=== PATIENT | female | born 1960 | race Caucasian/White ===

== ENCOUNTER 2017-06-19 21:37 | Emergency (ER) | payer SELFPAY ==
[2017-06-19 22:28] LABS: #Eosinphils 0.2 thou/uL (0.0-0.7); #Lymphocytes 1.4 thou/uL (1.20-3.40); #Monocytes 0.6 thou/uL (0.11-0.59); #Neutrophils 7.9 thou/uL (1.40-6.50); %Basophils 0.5 % (0.0-1.0); %Eosinophils 1.7 % (0.0-10.0); %Monocytes 5.7 % (0.0-10.0); %Neutrophils 78.2 % (42.0-75.0); Hemoglobin 13.6 g/dL (12.0-16.0); Mean Corpuscular HGB CONC 34.1 g/dL (32.0-36.0); Mean Corpuscular Hemoglobin 31.7 pg (27.0-31.0); Mean Corpuscular Volume 93.2 fl (81.0-99.0); Mean Platelet Volume 7.5 fL (7.4-10.4); Platelet Count 193 thou/uL (130-400); RBC Distribution Width 11.9 % (11.5-14.5); White Blood Cell (WBC) Count 10.1 thou/uL (4.8-10.8)
[2017-06-19 22:50] LABS: ALT (SGPT) 55 U/L (8-55); AST (SGOT) 43 U/L (5-34); Albumin 3.9 g/dL (3.5-5.0); Alkaline Phosphatase 133 U/L (40-150); Anion Gap 12 mmol/L (10-20); BUN (Urea Nitrogen) 14 mg/dL (9.8-20.1); Bilirubin, Total 0.7 mg/dL (0.2-1.2); Calc. Creatinine Clearance 0 mL/min (70-130); Calcium 9.5 mg/dL (7.8-10.44); Carbon Dioxide 24 mmol/L (22-29); Chloride 106 mmol/L (98-107); Estimated GFR-MDRD 75; Globulin 3.4 g/dL (2.4-3.5); Glucose 182 mg/dL (70-105); Potassium 3.6 mmol/L (3.5-5.1); Protein, Total 7.3 g/dL (6.0-8.3); Sodium 138 mmol/L (136-145)
[2017-06-19] MEDS ORDERED: Diazepam 5 MG TAB ONE (23:01)
[2017-06-19] MEDS ORDERED: Ketorolac Tromethamine 30 MG/ML VIAL ONE (23:01)
--- NOTE | 2017-06-19 23:04 | RAD ---
RIGHT HIP TWO VIEWS: History: Right hip pain. FINDINGS: There are arthritic changes of the hip with spurring along the acetabulum without joint space narrowi ng. No fractures. IMPRESSION: Minimal arthritic changes of the hip. POS: DEANN
--- NOTE | 2017-06-19 23:42 | ULT ---
RIGHT LOWER EXTREMITY VENOUS DUPLEX EXAM: History: Right leg and groin pain. Exam was technically difficult at the patient is persistently moving. Patient could not tolerate comp ression. FINDINGS: Examination includes common femoral, superficial, and profunda femoral, saphenous, popliteal and trif urcation veins. This shows patent deep venous system with normal but limited compressibility and augmentation. IMPRESSION: No evidence of DVT of the right lower extremity. Technically somewhat limited exam. POS: DEANN
--- NOTE | 2017-06-20 08:37 | CT ---
PRELIMINARY REPORT/[facility]/EMERGENCY AFTER HOURS PROCEDURE: EXAM: CT Pelvis Without Intravenous Contrast EXAM DATE/TIME: 06/20/2017 1:55 AM CLINICAL HISTORY: Pain; Hip pain; Right hip; Patient HX: Er 9; 56 y/o f with presentation of right gr oin pain. Pt reports sudden onset of pain and states that pain has now slightly improved with hydroco done. Denies trauma, strenuous activity, fever, cp, SOB, neuro deficits any other complaints. TECHNIQUE: Axial computed tomography images of the pelvis without intravenous contrast. Coronal and sagittal reformatted images were created and reviewed. COMPARISON: No relevant prior studies available. FINDINGS: Bones/joints: Small right hip joint effusion. Mild to moderate degenerative changes at the hip joints bilaterally and lower lumbar spine. No acute fracture. No dislocation. Soft tissues: Unremarkable. Bladder: Unremarkable. No stones. IMPRESSION: Small right hip joint effusion. No acute fracture. ---We are pleased to participate in the care of your patient.--- Thank you for allowing us to participate in the care of your patient. Dictated and Authenticated by: Ann Self MD 06/20/2017 2:20 AM Central Time ([place] & [place]) FINAL REPORT CT PELVIS WITHOUT IV CONTRAST: I agree with the preliminary report given by Dr. Ann Self of [employer]. POS: [facility]
== END 2017-06-20 02:40 | disposition home or self-care (01) ==
LOC: ERS 21:37
DX: S39.011A Strain of muscle, fascia and tendon of abdomen, initial encounter (principal); M25.851 Other specified joint disorders, right hip; E11.9 Type 2 diabetes mellitus without complications; Z71.6 Tobacco abuse counseling; F17.210 Nicotine dependence, cigarettes, uncomplicated; Z79.4 Long term (current) use of insulin; X58.XXXA Exposure to other specified factors, initial encounter
CPT/HCPCS: 36415; 72192; 80053; 85025; 85379; 96372; 99406; J1885; J2270

== ENCOUNTER 2017-06-22 18:15 | Inpatient (IN) | payer OTHER, SELFPAY ==
[~2017-06-22 18:15] MED LIST: ISOVUE-370 76%-LOCM 1 ML ONE
[2017-06-22 20:26] LABS: #Eosinphils 0.1 thou/uL (0.0-0.7); #Lymphocytes 0.9 thou/uL (1.20-3.40); #Monocytes 0.6 thou/uL (0.11-0.59); %Basophils 0.2 % (0.0-1.0); %Eosinophils 0.8 % (0.0-10.0); %Lymphocytes 11.3 % (21.0-51.0); %Monocytes 8.2 % (0.0-10.0); %Neutrophils 79.5 % (42.0-75.0); Mean Corpuscular Hemoglobin 30.9 pg (27.0-31.0); Mean Corpuscular Volume 93.4 fl (81.0-99.0); Platelet Count 200 thou/uL (130-400); Red Blood Cell (RBC) Count 4.85 mill/uL (4.20-5.40); White Blood Cell (WBC) Count 7.6 thou/uL (4.8-10.8)
[2017-06-22 21:29] LABS: Albumin 3.1 g/dL (3.5-5.0)
[2017-06-22 21:30] LABS: Chloride 103 mmol/L (98-107); Potassium 3.3 mmol/L (3.5-5.1); Sodium 132 mmol/L (136-145)
[2017-06-22 21:31] LABS: Calcium 8.3 mg/dL (7.8-10.44); Glucose 123 mg/dL (70-105)
[2017-06-22 21:32] LABS: Globulin 3.1 g/dL (2.4-3.5); Protein, Total 6.2 g/dL (6.0-8.3)
[2017-06-22 21:33] LABS: Anion Gap 8 mmol/L (10-20); Bilirubin, Total 1.1 mg/dL (0.2-1.2); Carbon Dioxide 24 mmol/L (22-29)
[2017-06-22 21:34] LABS: Alkaline Phosphatase 83 U/L (40-150)
[2017-06-22 21:35] LABS: BUN (Urea Nitrogen) 9 mg/dL (9.8-20.1); Calc. Creatinine Clearance 0 mL/min (70-130); Estimated GFR-MDRD Greater than 90
[2017-06-22 21:36] LABS: AST (SGOT) 19 U/L (5-34)
[2017-06-22 21:37] LABS: ALT (SGPT) 29 U/L (8-55); CK (CPK) 29 U/L (29-168)
--- NOTE | 2017-06-22 21:41 | CT ---
CT ABDOMEN AND PELVIS 06/22/17 COMPARISON: None. HISTORY: Right sided hip pain, lower abdominal pain. TECHNIQUE: Serial axial CT imaging is obtained at 5 mm intervals from the lung bases through the pubic symphysis with intravenous contrast. Coronal reformatted imaging obtained. FINDINGS: Imaged lung bases are unremarkable. No free intraperitoneal air is noted. The hepatic parenchyma is heterogeneous with a lobulated peripheral contour, evidence of cirrhosis. T he spleen is enlarged measuring 14.2 cm in craniocaudal dimension. Cholelithiasis is noted. The pancr eas, adrenal glands, and kidneys are unremarkable. No evidence for bowel inflammatory change or bowel obstruction. Partially visualized appendix appears grossly unremarkable. There is no lymphadenopathy appreciated within the abdomen or pelvis. There is scattered atherosclero tic calcifications of the abdominal aorta. Review of the osseous structures demonstrates no worrisome lytic or blastic bone lesion. No acute oss eous abnormality is evident. There is a prominent nonspecific right hip effusion. There is mild stranding of the fat adjacent to t he upper thigh musculature adjacent to the proximal right femur. The gallbladder is mildly distended. IMPRESSION: 1. Nonspecific right hip joint effusion. No discrete fracture is seen. Clinical correlation is e ssential. This may represent change associated with a septic right hip. An effusion associated with a radio-occult fracture is a possibility in the proper clinical setting. 2. Hepatic cirrhotic change with splenomegaly. 3. Cholelithiasis with mild gallbladder distention. 4. Concern for possible septic hip on the right discussed with Dr. Haro at 9:20 p.m., 06/22/17. Code CR POS: HANG
[2017-06-22] MEDS ORDERED: Ketorolac Tromethamine 30 MG/ML VIAL IVP PRN (23:18)
[2017-06-22] MEDS ORDERED: Acetaminophen 325 MG TAB PO PRN (23:19)
[2017-06-22] MEDS ORDERED: Ondansetron ODT 4 MG TAB SL PRN (23:19)
[2017-06-22] MEDS ORDERED: Ondansetron HCl/PF 4 MG/2 ML Vial IVP PRN (23:19)
[2017-06-22 23:22] VITALS: BMI 25.7
[2017-06-22] MEDS: HYDROcodone/Acetaminophen 5/325 mg Tablet PO PRN (23:24)
[2017-06-22] MEDS ORDERED: Dextrose 50% Abboject 50 ML SYRINGE SLOW IVP PRN (23:49)
[2017-06-22] MEDS ORDERED: Dextrose 5% in Water 1,000 ML IV PRN (23:49)
--- NOTE | 2017-06-23 03:54 | HP ---
DATE OF ADMISSION: 06/22/2017 ADMITTING PHYSICIAN: Dr. Nilton Dodd. PRIMARY CARE PHYSICIAN: None. CHIEF COMPLAINT: Right hip pain. HISTORY OF PRESENT ILLNESS: This is a pleasant 56-year-old female with a history of diabetes type 2 . She does admit to being noncompliant with her insulin and with followup. Approximately one day ag o, she began to experience right hip pain actually on 06/20/2017. She came to the ED and was sent ho me. She reports that the pain has gotten worse. She was given Valium and Tylenol in the ER 2 days a go and her pain is still worse. She denies trauma or any other untoward event. No chest pain, no sh ortness of breath. Symptoms are localized to the right inner thigh 10/10 upon presentation to the ER . Unable to put weight on the leg and unable to walk at this time. REVIEW OF SYSTEMS: The following complete review of systems was negative, unless otherwise mentioned in the HPI or below: Constitutional: Weight loss or gain, sense of well-being, ability to conduct usual activities, exercise tolerance. Skin/Breast: Rash, itching, changes in hair growth or loss, n ail changes, breast lumps, tenderness, swelling, nipple discharge. Eyes: Vision, double vision, tea ring, blind spots, pain. ENT/Mouth: Headaches (location, time of onset, duration, precipitating fac tors), vertigo, lightheadedness, injury. Vision, double vision, tearing, blind spots, pain, nose blee ding, colds, obstruction, discharge, dental difficulties, gingival bleeding, dentures, neck stiffness , pain, tenderness, masses in thyroid or other areas. Cardiovascular: Precordial pain, substernal d istress, palpitations, syncope, dyspnea on exertion, orthopnea, nocturnal paroxysmal dyspnea, edema, cyanosis, hypertension, heart murmurs, varicosities, phlebitis, claudication. Respiratory: Pain, sh ortness of breath, wheezing, stridor, cough, hemoptysis, fever or night sweats. Gastrointestinal: P oor appetite, dysphagia, indigestion, abdominal pain, heartburn, eructation, nausea, vomiting, hemate mesis, jaundice, constipation, or diarrhea, abnormal stools (roddy-colored, tarry, bloody, greasy, fou l smelling), flatulence, hemorrhoids, recent changes in bowel habits. Genitourinary: Urgency, frequ ency, dysuria, nocturia, hematuria, polyuria, oliguria, unusual (or change in) color of urine, stones , hesitancy, change in size of stream, dribbling, acute retention or incontinence, libido, potency. Musculoskeletal: Pain, swelling, redness or heat of muscles or joints, limitation, of motion, muscul ar weakness, atrophy, cramps. Neurologic/Psychiatric: Convulsions, paralyzes, tremor, incoordinatio n, paresthesias, difficulties with memory of speech, sensory or motor disturbances, or muscular coord ination (ataxia, tremor), emotional problems, anxiety, depression, previous psychiatric care, unusual perceptions, hallucinations. Allergy/Immunologic: Skin rash, anemia, bleeding tendency, polydipsia , polyuria, intolerance to heat or cold. PAST MEDICAL HISTORY: Significant for diabetes type 2. PAST SURGICAL HISTORY: Positive for section. PSYCHIATRIC HISTORY: None. SOCIAL HISTORY: Patient denies alcohol use. She is a former drug user including methamphetamine. S he currently smokes about half a pack per day. FAMILY HISTORY: Reviewed and noncontributory to this case. HOME MEDICATIONS: Include insulin dose unknown, Valium 10 mg q.8 as needed. DRUG ALLERGIES: No known drug allergies. PHYSICAL EXAMINATION: VITAL SIGNS: Blood pressure 169/86, pulse 82, respirations 17, pain 10/10, O2 sats 96% on room air, temperature 97.7. GENERAL: She is in no acute distress. HEAD: Normocephalic, atraumatic. There are some excoriations on the top of her scalp with hair loss . EYES: PERRL. Extraocular muscles intact. ENT: No nasal deformity, no bleeding from nares. Mouth and mucosa are pink and moist. NECK: Trachea midline, normal range of motion, supple. CHEST: No rales, no rhonchi, no wheezes. CARDIOVASCULAR: Regular rate and rhythm. No murmurs, regurg, gallops. ABDOMEN: There was some mild tenderness in the right lower quadrant, but no rebound, no guarding. P ositive bowel sounds. EXTREMITIES: No clubbing, cyanosis, or edema. Decreased range of motion of the right lower extremit y secondary to pain. NEUROLOGIC: She is alert and oriented x3 with cranial nerves II-XII grossly intact. EXTREMITY EXAM: There is once again hip tenderness on the right side with decreased range of motion because of pain. LABORATORY DATA AND IMAGES: CT does show effusion in the right femoral joint, worrisome for septic r ight hip. There is also noted hepatic cirrhosis with splenomegaly changes, cholelithiasis with mild gallbladder distention. CBC shows a white count of 7.6, hemoglobin 15.0, hematocrit 45.3, platelets 200, neutrophils 79.5%. Chem-7 shows sodium of 132, potassium 3.3, chloride 103, CO2 of 24, BUN 8, c reatinine 0.63, glucose 123, lactic acid 1.7. AST 19, ALT 29. C-reactive protein of 5.45, albumin 3 .1. ASSESSMENT AND PLAN: 1. Possible septic hip. 2. Diabetes, type 2. 3. Tobacco abuse. PLAN: Patient will be admitted to observation. We will consult Interventional Radiology to perform a right hip paracentesis. We will analyze the fluids and administer care based on results. Patient will be placed on sliding scale insulin regimen, and we will monitor her blood sugars q.a.c. and at b edtime. We will provide VTE prophylaxis with Lovenox.
[2017-06-23] MEDS ORDERED: Metoprolol Tartrate 5 MG/5 ML VIAL IVP SCH (04:15)
[2017-06-23] MEDS: HYDROcodone/Acetaminophen 5/325 mg Tablet PO PRN ×4 (04:22→23:27)
[2017-06-23 05:42] LABS: #Eosinphils 0.1 thou/uL (0.0-0.7); #Lymphocytes 0.8 thou/uL (1.20-3.40); #Monocytes 0.5 thou/uL (0.11-0.59); %Basophils 0.2 % (0.0-1.0); %Lymphocytes 12.1 % (21.0-51.0); %Monocytes 8.5 % (0.0-10.0); %Neutrophils 78.2 % (42.0-75.0); Hemoglobin 13.7 g/dL (12.0-16.0); Mean Corpuscular HGB CONC 33.6 g/dL (32.0-36.0); Mean Corpuscular Hemoglobin 31.3 pg (27.0-31.0); Mean Corpuscular Volume 93.1 fl (81.0-99.0); Mean Platelet Volume 7.3 fL (7.4-10.4); Platelet Count 200 thou/uL (130-400); RBC Distribution Width 11.9 % (11.5-14.5); Red Blood Cell (RBC) Count 4.37 mill/uL (4.20-5.40); White Blood Cell (WBC) Count 6.4 thou/uL (4.8-10.8)
[2017-06-23 06:07] LABS: Anion Gap 11 mmol/L (10-20); BUN (Urea Nitrogen) 8 mg/dL (9.8-20.1); Calc. Creatinine Clearance 96 mL/min (70-130); Calcium 8.8 mg/dL (7.8-10.44); Carbon Dioxide 23 mmol/L (22-29); Chloride 100 mmol/L (98-107); Estimated GFR-MDRD Greater than 90; Glucose 236 mg/dL (70-105); Sodium 130 mmol/L (136-145)
[2017-06-23] MEDS: Insulin Regular 300 UNITS/3 ML VIAL SC PRN ×3 (06:19→18:47)
[2017-06-23] MEDS ORDERED: Benzonatate 100 MG CAP PO PRN (06:47)
[2017-06-23] MEDS ORDERED: Diabetic Tussin 200 MG/10 ML UDCUP PO PRN (06:47)
[2017-06-23] MEDS ORDERED: Zolpidem Tartrate 5 MG TAB PO PRN (06:47)
[2017-06-23] MEDS ORDERED: Artificial Tears 18 DROP/0.9 ML EA EYE PRN (06:47)
[2017-06-23] MEDS ORDERED: Loratadine 10 MG TAB PO PRN (06:47)
[2017-06-23] MEDS ORDERED: Ondansetron ODT 4 MG TAB PO PRN (06:47)
[2017-06-23] MEDS ORDERED: Eucerin (Mineral Oil/Petrolatum,White) 30 gm Jar TOP PRN (06:47)
[2017-06-23] MEDS ORDERED: Mag-Al 1200 mg/1200 mg/30 ML UDCUP PO PRN (06:47)
[2017-06-23] MEDS ORDERED: Sodium Chloride 0.65% Nasal 44 ML BOT EA NARE PRN (06:47)
[2017-06-23] MEDS ORDERED: Chloraseptic Spray 180 ml Bottle PO PRN (06:47)
[2017-06-23] MEDS ORDERED: Milk Of Magnesia 30 ML UDCUP PO PRN (06:47)
[2017-06-23] MEDS ORDERED: Ondansetron HCl/PF 4 MG/2 ML Vial IVP PRN (06:47)
[2017-06-23] MEDS ORDERED: HYDROcodone/Acetaminophen 5/325 mg Tablet PO PRN (06:47)
[2017-06-23] MEDS ORDERED: Acetaminophen 325 MG TAB PO PRN (06:47)
--- NOTE | 2017-06-23 08:02 | ULT ---
ULTRASOUND ABDOMEN LIMITED: (RIGHT UPPER QUADRANT) Date: 06/23/17 Time: 0725 hours HISTORY: 56-year-old female with cirrhotic liver. FINDINGS: Gallbladder: 10 mm gallstone. Unable to roll patient to determine whether mobile or immobile. Diffuse mural thickening of 5-6 mm. This is nonspecific and could be due to the liver disease, but could als o be due to chronic or acute cholecystitis. No sonographic Saucedo's sign. No pericholecystic edema. Common duct: 5 mm. Liver: Margins are nodular. Echotexture is heterogeneous and coarse. These are new findings compared to the previous ultrasound of 04/23/07. Pancreas: Nonspecific sonographic appearance. Right kidney: No hydronephrosis. IMPRESSION: 1. Hepatic cirrhosis. 2. Cholelithiasis. JAMA Leblanc POS: OFF
[2017-06-23 08:06] LABS: Ferritin 351.65 ng/mL (10-291)
[2017-06-23 08:20] LABS: HBCM Index 0.08 S/CO (0-0.79); HBSAg Index 0.21 S/CO (0-0.99); Hep A IgM AB Non-Reactive (NonReactive); Hep A IgM S/CO 0.15 S/CO (0-0.79); Hep B Surf Ag Non-Reactive S/CO (NonReactive); Hepatitis B Core IGM Abs Non-Reactive (NonReactive)
[2017-06-23] MEDS: Famotidine 20 MG TAB PO SCH ×2 (09:18→20:55)
[2017-06-23 10:01] LABS: Hep C IgG Ab Reflex HepC Qnt (NonReactive)
[2017-06-23 10:03] LABS: Hep C Index 13.17 S/CO (0-0.79)
--- NOTE | 2017-06-23 11:21 | CON ---
DATE OF CONSULTATION: 06/23/2017 REQUESTING PHYSICIAN: Dr. Elier Ward CONSULTING PHYSICIAN: Dr. Michael Doan CHIEF COMPLAINT: Right hip effusion. HISTORY OF PRESENT ILLNESS: Obdulia is a 56-year-old white female who was admitted through the ER by [facility] last night for amplification of pain in the right hip and inability to walk. Ernesto arently she was seen 2-3 days prior in the emergency room and treated symptomatically with pain medic ation and released and she returned to the ER with significant pain and inability to walk. She was a dmitted to the Medicine Service and our service was consulted for evaluation. A radiology aspirate h as been recommended. CT examination of the abdomen and pelvis as well as a vascular ultrasound has b een obtained. The CT demonstrated interval change and a right hip effusion from 3 days ago. There h as been mild enlargement consistent with complaints. She has not run fevers. She has been relativel y stable although her pain amplification that she describes a 10/10. PAST MEDICAL HISTORY: Diabetes type 2 with poor control. PAST SURGICAL HISTORY: Noncontributory. PHYSICAL EXAMINATION: Visual inspection of the right hip demonstrates her to show some guarding towa rds the right hip. Exam is difficult, she keeps it in a semi-flexed position of external rotation. She is neurovascularly intact in the right lower extremity. Tenderness to palpation along the hip angela int anteriorly is uncomfortable for the patient. She guards. Otherwise her mentation appears to be somewhat cloudy and she is not completely focused and lucid. N o external lesions are noted on the skin other than some dorsal warm scabs which are consistent with picking. No erythema surrounds the hip girdle, but she is intolerant with motion of the hip. Range of motion is poorly assessed. IMAGING STUDIES: CT examination of the pelvis demonstrates an effusion in the right hip, otherwise n ormal bony cortices are observed. No fractures identified. Two views of right hip obtained on her l ast visit again demonstrate normal bony outlines, stable appearance. No evidence of necrosis. IMPRESSION: Right hip monoarticular or asymmetric arthropathy with effusion right hip. PLAN: The patient will be scheduled for a fluoroscopic or x-ray guided aspirate of the right hip Gra m stain culture and sensitivity and crystal analysis, glucose, protein, cell count with differential and chemistries have been obtained on the specimen. We will follow up afterwards. Recommendation to follow.
--- NOTE | 2017-06-23 11:25 | PDOC.PN ---
- Subjective Encounter Start Date: 06/23/17 Encounter Start Time: 10:00 -: old records requested/rev pt has right hip pain, no fever, has h/o alcohol abuse Patient seen and examined. No overnight events - Objective MAR Reviewed: Yes Vital Signs & Weight: Vital Signs (12 hours) Temp Pulse Resp BP BP Pulse Ox 06/23/17 09:17 173/82 H 06/23/17 08:00 98.2 F 80 18 173/82 H 96 06/23/17 05:50 169/80 H 06/23/17 05:36 99.8 F H 98 17 180/97 H 95 06/23/17 04:29 93 178/84 H 06/23/17 04:24 93 180/92 H 06/23/17 04:19 177/95 H 06/23/17 02:06 166/80 H 06/23/17 01:14 89 172/80 H 06/23/17 00:27 182/96 H 06/23/17 00:25 98.1 F 89 16 182/96 H 94 L 06/22/17 23:57 98.4 F 68 18 Weight Weight 145 lb I&O: 06/22/17 06/23/17 06/24/17 06:59 06:59 06:59 Output Total 1 Balance -1 Result Diagrams: 06/23/17 05:19 06/23/17 05:19 Radiology Reviewed by me: Yes (US, CT abdomen) Phys Exam - Physical Examination Constitutional: NAD HEENT: PERRLA, moist MMs, sclera anicteric Neck: no JVD, supple Respiratory: no wheezing, no rales, no rhonchi Cardiovascular: RRR, no significant murmur, no rub Gastrointestinal: soft, non-tender, no distention, positive bowel sounds Musculoskeletal: no edema, pulses present Neurological: non-focal, normal sensation, moves all 4 limbs Lymphatic: no nodes Psychiatric: normal affect, A&O x 3 Skin: no rash, normal turgor Dx/Plan (1) Hypokalemia Code(s): E87.6 - HYPOKALEMIA Status: Resolved (2) Hyponatremia Code(s): E87.1 - HYPO-OSMOLALITY AND HYPONATREMIA Status: Acute (3) Right hip joint effusion Code(s): M25.451 - EFFUSION, RIGHT HIP Status: Acute Comment: suspected for septic joint (4) Cholelithiases Code(s): K80.20 - CALCULUS OF GALLBLADDER W/O CHOLECYSTITIS W/O OBSTRUCTION Status: Chronic Qualifiers: Cholelithiasis location: gallbladder Cholecystitis presence: without cholecystitis Biliary obstruction: without biliary obstruction Qualified Code(s): K80.20 - Calculus of gallbladder without cholecystitis without obstruction (5) Diabetes type 2, controlled Code(s): E11.9 - TYPE 2 DIABETES MELLITUS WITHOUT COMPLICATIONS Status: Chronic (6) Hepatitis C Code(s): B19.20 - UNSPECIFIED VIRAL HEPATITIS C WITHOUT HEPATIC COMA Status: Chronic Qualifiers: Viral hepatitis chronicity: chronic Hepatic coma status: without hepatic coma Qualified Code(s): B18.2 - Chronic viral hepatitis C (7) Hypertension Code(s): I10 - ESSENTIAL (PRIMARY) HYPERTENSION Status: Chronic (8) Liver cirrhosis Code(s): K74.60 - UNSPECIFIED CIRRHOSIS OF LIVER Status: Chronic Qualifiers: Ascites presence: without ascites Comment: may be due to hepatitis C and her alcohol abuse history - Plan cont current plan of care, plan discussed w/ family * today US GB done and confirmed cirrhotic morphology * hepatitis C positive * has elevated inflammatory marker * today she will need CT guided aspiration of hip joint . * will get ortho opinion * will follow on fluid culture result * if any evidence of infection, then will start IV antibiotics and she may need wash out of joint * she will need to stay in hospital, will change to inpt status * will control pain * discussed with her daughter bedside * medication reviewed as below * symptomatic treatment Review of Systems - Review of Systems Constitutional: negative: fever, chills, sweats, weakness, malaise, other Eyes: negative: Pain, Vision Change, Conjunctivae Inflammation, Eyelid Inflammation, Redness, Other ENT: negative: Ear Pain, Ear Discharge, Nose Pain, Nose Discharge, Nose Congestion, Mouth Pain, Mouth Swelling, Throat Pain, Throat Swelling, Other Respiratory: negative: Cough, Dry, Shortness of Breath, Hemoptysis, SOB with Excertion, Pleuritic Pain, Sputum, Wheezing Cardiovascular: negative: chest pain, palpitations, orthopnea, paroxysmal nocturnal dyspnea, edema, light headedness, other Gastrointestinal: negative: Nausea, Vomiting, Abdominal Pain, Diarrhea, Constipation, Melena, Hematochezia, Other Genitourinary: negative: Dysuria, Frequency, Incontinence, Hematuria, Retention , Other Musculoskeletal: Leg Pain. negative: Neck Pain, Shoulder Pain, Arm Pain, Back Pain, Hand Pain, Foot Pain, Other - Medications/Allergies Allergies/Adverse Reactions: Allergies Allergy/AdvReac Type Severity Reaction Status Date / Time No Known Allergies Allergy Verified 06/22/17 23:21 Medications: Current Medications Acetaminophen (Tylenol) 650 mg PO Q4H PRN PRN Reason: Headache/Fever or Mild Pain Hydrocodone Bitart/Acetaminophen (Goldonna 5/325) 1 tab PO Q4H PRN PRN Reason: Moderate Pain (4-6) Hydrocodone Bitart/Acetaminophen (Goldonna 5/325) 2 tab PO Q4H PRN PRN Reason: Severe Pain (7-10) Al Hydroxide/Mg Hydroxide (Maalox) 15 ml PO Q4H PRN PRN Reason: Heartburn or Indigestion Artificial Tears (Tears Naturale) 0 drop EA EYE PRN PRN PRN Reason: Dry Eyes Benzonatate (Tessalon) 100 mg PO Q4H PRN PRN Reason: Cough Dextrose/Water (Dextrose 50%) 25 gm SLOW IVP PRN PRN PRN Reason: Hypoglycemia Enalapril Maleate (Vasotec) 2.5 mg PO DAILY [facility] Last Admin: 06/23/17 09:17 Dose: 2.5 mg Enoxaparin Sodium (Lovenox) 40 mg SC 2100 SOCO Famotidine (Pepcid) 20 mg PO BID [facility] Last Admin: 06/23/17 09:18 Dose: Not Given Glucagon (Glucagon) 1 mg IM PRN PRN PRN Reason: Hypoglycemia Guaifenesin (Robitussin Sf) 200 mg PO Q4H PRN PRN Reason: Cough Hydralazine HCl (Apresoline) 10 mg SLOW IVP Q4H PRN PRN Reason: Systolic BP > 180 Dextrose/Water (D5w) 1,000 mls @ 0 mls/hr IV .Q0M PRN; As Directed PRN Reason: Hypoglycemia Insulin Human Regular (Humulin R) 0 units SC .MILD SLIDING SCALE PRN PRN Reason: Mild Correctional Scale Last Admin: 06/23/17 06:19 Dose: 3 unit Loratadine (Claritin) 10 mg PO DAILYPRN PRN PRN Reason: Sinus Symptoms Magnesium Hydroxide (Milk Of Magnesium) 30 ml PO DAILYPRN PRN PRN Reason: Constipation Mineral Oil/White Petrolatum (Eucerin Cream) 0 gm TOP BIDPRN PRN PRN Reason: Dry Skin Ondansetron HCl (Zofran Odt) 4 mg PO Q6H PRN PRN Reason: Nausea/Vomiting Ondansetron HCl (Zofran) 4 mg IVP Q6H PRN PRN Reason: Nausea/Vomiting Phenol (Chloraseptic [place] 180 Ml Bot) 0 ml PO PRN PRN PRN Reason: Sore Throat Senna (Senokot) 2 tab PO HSPRN PRN PRN Reason: Constipation Sodium Chloride ([place] Nasal [place] 0.65%) 0 ml EA NARE QIDPRN PRN PRN Reason: Nasal Congestion Tramadol HCl (Ultram) 50 mg PO Q4H PRN PRN Reason: Moderate Pain (4-6) Zolpidem Tartrate (Ambien) 5 mg PO HSPRN PRN PRN Reason: Insomnia
--- NOTE | 2017-06-23 11:57 | RAD ---
FLUOROSCOPIC-GUIDED RIGHT HIP ASPIRATION: COMPARISON: CT 06/22/17. FINDINGS: The patient was brought to the fluoroscopy suite. All questions were answered. Informed consent was obtained. Timeout was performed. The right hip was prepped and draped in normal sterile fashion. The patient was in a large amount of pain and could only tolerate the procedure for a limited amount of time. Two mL of Lidocaine was in stilled into the superficial and deep soft tissues. Using a 22-gauge needle, the right hip was acces sed. Six mL of yellow-colored thick fluid was aspirated. Three mL of Lidocaine was instilled into t he deep soft tissues as well as in the hip joint after aspiration. IMPRESSION: Technically successful fluoroscopic-guided hip aspiration. Six mL of thick yellow-colored fluid was aspirated. POS: DEANN
[2017-06-23 12:12] LABS: BF Color Yellow; Body Fluid Source SYNOVIAL FLUID; Clarity Cloudy/Turbid (Clear); RBC Background Count 0.004; Tube # EDTA
[2017-06-23 12:13] LABS: RBC Count-Automated 186000 /cumm; WBC/NonHematic-Auto 166800 /cumm
[2017-06-23 12:34] LABS: Synovial Fluid, Glucose 20 mg/dL (Not Available); Synovial Fluid, Protein 4.9 g/dL (Not Available); Synovial Fluid, Uric Acid Less than 5.0 mg/dL (Not Available)
[2017-06-23 12:58] LABS: BF Segmented Neutrophils 92 %; Cell Count Non Hematic 7 %; Lymphocytes 1 %
[2017-06-23] MEDS: hydrALAZINE 20 MG/ML VIAL SLOW IVP PRN ×2 (13:15→20:21)
[2017-06-23] MEDS ORDERED: Iopamidol 300 61% 30 ML VIAL ONE (13:22)
[2017-06-23] MEDS ORDERED: cefTRIAXone\\ROCEPHIN 2 GM in Sodium Chloride 0.9% 100 ML IVPB SCH (16:00)
[2017-06-23] MEDS: Vancomycin HCl 1 GM in Premix Bag 1 BAG IVPB SCH (17:27)
[2017-06-23] MEDS: traMADol HCl 50 MG TAB PO PRN (20:22)
[2017-06-23] MEDS: Enoxaparin Sodium 40 MG/0.4 ML SYRINGE SC SCH (20:56)
[2017-06-24] MEDS: HYDROcodone/Acetaminophen 5/325 mg Tablet PO PRN ×2 (03:46→07:45)
[2017-06-24] MEDS: Vancomycin HCl 1 GM in Premix Bag 1 BAG IVPB SCH (04:57)
[2017-06-24 05:31] LABS: #Lymphocytes 1.6 thou/uL (1.20-3.40); #Monocytes 1.2 thou/uL (0.11-0.59); #Neutrophils 6.4 thou/uL (1.40-6.50); %Basophils 0.3 % (0.0-1.0); %Eosinophils 0.3 % (0.0-10.0); %Lymphocytes 16.8 % (21.0-51.0); %Neutrophils 69.6 % (42.0-75.0); Hemoglobin 13.6 g/dL (12.0-16.0); Mean Corpuscular HGB CONC 33.2 g/dL (32.0-36.0); Mean Corpuscular Hemoglobin 30.8 pg (27.0-31.0); Mean Corpuscular Volume 92.6 fl (81.0-99.0); Mean Platelet Volume 7.4 fL (7.4-10.4); Platelet Count 227 thou/uL (130-400); Red Blood Cell (RBC) Count 4.42 mill/uL (4.20-5.40); White Blood Cell (WBC) Count 9.2 thou/uL (4.8-10.8)
[2017-06-24] MEDS: Insulin Regular 300 UNITS/3 ML VIAL SC PRN ×2 (07:37→16:42)
[2017-06-24 07:56] LABS: ALT (SGPT) 28 U/L (8-55); AST (SGOT) 25 U/L (5-34); Alkaline Phosphatase 87 U/L (40-150); Anion Gap 11 mmol/L (10-20); BUN (Urea Nitrogen) 12 mg/dL (9.8-20.1); Bilirubin, Total 0.8 mg/dL (0.2-1.2); Calc. Creatinine Clearance 90 mL/min (70-130); Calcium 8.5 mg/dL (7.8-10.44); Carbon Dioxide 24 mmol/L (22-29); Chloride 97 mmol/L (98-107); Estimated GFR-MDRD 85; Globulin 3.5 g/dL (2.4-3.5); Glucose 170 mg/dL (70-105); Potassium 4.1 mmol/L (3.5-5.1); Protein, Total 6.5 g/dL (6.0-8.3); Sodium 128 mmol/L (136-145)
[2017-06-24] MEDS ORDERED: Fentanyl 100 MCG/2 ML VIAL ONE ×2 (10:07→11:41)
[2017-06-24 10:19] LABS: Amphetamine Detected (NotDetected); Cocaine Metabolite Screen Not Detected (NotDetected); Medtox Reader # READER 1; Methamphetamine Detected (NotDetected); Opiate Screen Detected (NotDetected); Phencyclidine (PCP) Not Detected (NotDetected); THC/Cannabinoid Screen Not Detected (NotDetected)
[2017-06-24 10:20] LABS: Barbiturates Screen Not Detected (NotDetected); Benzodiazepine Screen Detected (NotDetected); Medtox Control Line Valid? VALID (VALID); Methadone Not Detected (NotDetected); Oxycodone Screen Not Detected (NotDetected); Tricyclic Screen Not Detected (NotDetected)
[2017-06-24] MEDS ORDERED: SUGAMMADEX SODIUM 500 MG/5 ML VIAL ONE (11:11)
[2017-06-24] MEDS ORDERED: Ondansetron HCl/PF 4 MG/2 ML Vial IVP PRN (11:29)
[2017-06-24] MEDS ORDERED: Morphine Sulfate 2 MG/ML SYRINGE SLOW IVP PRN (11:29)
[2017-06-24] MEDS ORDERED: Promethazine HCl 25 MG/ML VIAL IM PRN (11:29)
[2017-06-24] MEDS ORDERED: Promethazine HCl 25 MG/ML VIAL SLOW IVP PRN (11:29)
[2017-06-24] MEDS ORDERED: HYDROcodone/Acetaminophen 10/325 mg Tablet PO PRN (11:41)
[2017-06-24] MEDS: HYDROcodone/Acetaminophen 10/325 mg Tablet PO PRN ×3 (12:35→20:08)
--- NOTE | 2017-06-24 12:37 | PDOC.PN ---
- Subjective Encounter Start Date: 06/24/17 Encounter Start Time: 08:30 Patient seen and examined. No new complaints. No overnight events pt has right hip pain, today plan for surgery - Objective MAR Reviewed: Yes Vital Signs & Weight: Vital Signs (12 hours) Temp Pulse Resp BP Pulse Ox 06/24/17 08:00 99.9 F H 88 18 161/77 H 94 L 06/24/17 06:56 100.0 F H 06/24/17 04:00 102.2 F H 102 H 20 165/62 H 96 Weight Weight 145 lb I&O: 06/23/17 06/24/17 06/25/17 06:59 06:59 06:59 Intake Total 720 Output Total 1 Balance -1 720 Result Diagrams: 06/24/17 05:01 06/24/17 05:01 Additional Labs: Accuchecks 06/24/17 06/23/17 06/23/17 05:54 20:44 15:49 POC Glucose 172 H 175 H 232 H EKG Reviewed by me: Yes (nsr) Phys Exam - Physical Examination Constitutional: NAD HEENT: PERRLA, moist MMs, sclera anicteric Neck: no JVD, supple Respiratory: no wheezing, no rales, no rhonchi Cardiovascular: RRR, no significant murmur, no rub Gastrointestinal: soft, non-tender, no distention, positive bowel sounds Musculoskeletal: no edema, pulses present Neurological: non-focal, normal sensation Psychiatric: normal affect, A&O x 3 Skin: no rash, normal turgor Dx/Plan (1) Septic arthritis of hip Code(s): M00.9 - PYOGENIC ARTHRITIS, UNSPECIFIED Status: Acute Qualifiers: Laterality: right (2) Staphylococcus aureus bacteremia with sepsis Code(s): A41.01 - SEPSIS DUE TO METHICILLIN SUSCEPTIBLE STAPHYLOCOCCUS AUREUS Status: Acute (3) Hypokalemia Code(s): E87.6 - HYPOKALEMIA Status: Resolved (4) Hyponatremia Code(s): E87.1 - HYPO-OSMOLALITY AND HYPONATREMIA Status: Acute (5) Right hip joint effusion Code(s): M25.451 - EFFUSION, RIGHT HIP Status: Acute Comment: suspected for septic joint (6) Cholelithiases Code(s): K80.20 - CALCULUS OF GALLBLADDER W/O CHOLECYSTITIS W/O OBSTRUCTION Status: Chronic Qualifiers: Cholelithiasis location: gallbladder Cholecystitis presence: without cholecystitis Biliary obstruction: without biliary obstruction Qualified Code(s): K80.20 - Calculus of gallbladder without cholecystitis without obstruction (7) Diabetes type 2, controlled Code(s): E11.9 - TYPE 2 DIABETES MELLITUS WITHOUT COMPLICATIONS Status: Chronic (8) Hepatitis C Code(s): B19.20 - UNSPECIFIED VIRAL HEPATITIS C WITHOUT HEPATIC COMA Status: Chronic Qualifiers: Viral hepatitis chronicity: chronic Hepatic coma status: without hepatic coma Qualified Code(s): B18.2 - Chronic viral hepatitis C (9) Hypertension Code(s): I10 - ESSENTIAL (PRIMARY) HYPERTENSION Status: Chronic (10) Liver cirrhosis Code(s): K74.60 - UNSPECIFIED CIRRHOSIS OF LIVER Status: Chronic Qualifiers: Ascites presence: without ascites Comment: may be due to hepatitis C and her alcohol abuse history - Plan cont current plan of care, plan discussed w/ family, continue antibiotics * today I & D * echo for bacteremia * ID consulted * continue rocephin and vancomycin * medication reviewed as below * symptomatic treatment. * will repeat culture again in day or 2 Review of Systems - Review of Systems Eyes: negative: Pain, Vision Change, Conjunctivae Inflammation, Eyelid Inflammation, Redness, Other ENT: negative: Ear Pain, Ear Discharge, Nose Pain, Nose Discharge, Nose Congestion, Mouth Pain, Mouth Swelling, Throat Pain, Throat Swelling, Other Respiratory: negative: Cough, Dry, Shortness of Breath, Hemoptysis, SOB with Excertion, Pleuritic Pain, Sputum, Wheezing Cardiovascular: negative: chest pain, palpitations, orthopnea, paroxysmal nocturnal dyspnea, edema, light headedness, other Gastrointestinal: negative: Nausea, Vomiting, Abdominal Pain, Diarrhea, Constipation, Melena, Hematochezia, Other Genitourinary: negative: Dysuria, Frequency, Incontinence, Hematuria, Retention , Other Musculoskeletal: Leg Pain. negative: Neck Pain, Shoulder Pain, Arm Pain, Back Pain, Hand Pain, Foot Pain, Other - Medications/Allergies Allergies/Adverse Reactions: Allergies Allergy/AdvReac Type Severity Reaction Status Date / Time No Known Allergies Allergy Verified 06/22/17 23:21 Medications: Current Medications Acetaminophen (Tylenol) 650 mg PO Q4H PRN PRN Reason: Headache/Fever or Mild Pain Hydrocodone Bitart/Acetaminophen ([place] 10/325) 1 tab PO Q4H PRN PRN Reason: Pain 1ST LINE Hydrocodone Bitart/Acetaminophen ([place] 10/325) 2 tab PO Q4H PRN PRN Reason: Pain 2ND LINE Last Admin: 06/24/17 12:35 Dose: 2 tab Al Hydroxide/Mg Hydroxide (Maalox) 15 ml PO Q4H PRN PRN Reason: Heartburn or Indigestion Artificial Tears (Tears Naturale) 0 drop EA EYE PRN PRN PRN Reason: Dry Eyes Benzonatate (Tessalon) 100 mg PO Q4H PRN PRN Reason: Cough Cefazolin Sodium (Ancef) 2 gm SLOW IVP 0500,1300,2100 [facility] Dextrose/Water (Dextrose 50%) 25 gm SLOW IVP PRN PRN PRN Reason: Hypoglycemia Enalapril Maleate (Vasotec) 2.5 mg PO DAILY [facility] Last Admin: 06/23/17 09:17 Dose: 2.5 mg Enoxaparin Sodium (Lovenox) 40 mg SC 2100 [facility] Last Admin: 06/23/17 20:56 Dose: 40 mg Famotidine (Pepcid) 20 mg PO BID [facility] Last Admin: 06/23/17 20:55 Dose: 20 mg Fentanyl (Pacu-Sublimaze) 50 mcg SLOW IVP Q10MIN PRN PRN Reason: Moderate to Severe Pain (6-10) Stop: 06/24/17 14:29 Glucagon (Glucagon) 1 mg IM PRN PRN PRN Reason: Hypoglycemia Guaifenesin (Robitussin Sf) 200 mg PO Q4H PRN PRN Reason: Cough Hydralazine HCl (Apresoline) 10 mg SLOW IVP Q4H PRN PRN Reason: Systolic BP > 180 Last Admin: 06/23/17 20:21 Dose: 10 mg Dextrose/Water (D5w) 1,000 mls @ 0 mls/hr IV .Q0M PRN; As Directed PRN Reason: Hypoglycemia Insulin Human Regular (Humulin R) 0 units SC .MILD SLIDING SCALE PRN PRN Reason: Mild Correctional Scale Last Admin: 06/24/17 07:37 Dose: 2 unit Loratadine (Claritin) 10 mg PO DAILYPRN PRN PRN Reason: Sinus Symptoms Magnesium Hydroxide (Milk Of Magnesium) 30 ml PO DAILYPRN PRN PRN Reason: Constipation Mineral Oil/White Petrolatum (Eucerin Cream) 0 gm TOP BIDPRN PRN PRN Reason: Dry Skin Miscellaneous Medication (Pharmacy To Dose) 1 each IVPB PRN PRN PRN Reason: Pharmacy to dose Morphine Sulfate (Pacu-Morphine Sulfate) 2 mg SLOW IVP Q10MIN PRN PRN Reason: Moderate to Severe Pain (6-10) Stop: 06/24/17 14:29 Ondansetron HCl (Zofran Odt) 4 mg PO Q6H PRN PRN Reason: Nausea/Vomiting Ondansetron HCl (Zofran) 4 mg IVP Q6H PRN PRN Reason: Nausea/Vomiting Ondansetron HCl (Pacu-Zofran) 4 mg IVP ONE PRN PRN Reason: Nausea/Vomiting Stop: 06/24/17 14:29 Phenol (Chloraseptic [place] 180 Ml Bot) 0 ml PO PRN PRN PRN Reason: Sore Throat Promethazine HCl (Pacu-Phenergan) 6.25 mg SLOW IVP ONE PRN PRN Reason: Nausea/Vomiting Stop: 06/24/17 14:29 Promethazine HCl (Pacu-Phenergan) 6.25 mg IM ONE PRN PRN Reason: Nausea/Vomiting Stop: 06/24/17 14:29 Senna (Senokot) 2 tab PO HSPRN PRN PRN Reason: Constipation Sodium Chloride ([place] Nasal [place] 0.65%) 0 ml EA NARE QIDPRN PRN PRN Reason: Nasal Congestion Tramadol HCl (Ultram) 50 mg PO Q4H PRN PRN Reason: Moderate Pain (4-6) Last Admin: 06/23/17 20:22 Dose: 50 mg Zolpidem Tartrate (Ambien) 5 mg PO HSPRN PRN PRN Reason: Insomnia
--- NOTE | 2017-06-24 13:10 | OP ---
PREOPERATIVE DIAGNOSIS: Septic right hip. POSTOPERATIVE DIAGNOSIS: Septic right hip. SURGEON: Michael Doan M.D. TELETYPE TECHNICIAN: Norm Becker M.D. BLOOD LOSS: 50 mL. SPECIMEN: Culture. DRAINS: None. COMPLICATIONS: None. DESCRIPTION OF PROCEDURE: The patient is already on IV vancomycin preoperatively, so no additional a ntibiotics were given. She was placed in left lateral decubitus position. Right hip was prepped and draped in the usual sterile fashion using typical posterior approach to the hip. The piriformis was released. I excised a section of capsule. Large amount of purulent material was obtained and this was sent for culture. A 5 liters pulsatile irrigation was performed. A [place] drain was left in th e wound. The wound was packed open and sterile dressings applied. There were no complications.
[2017-06-24] MEDS ORDERED: Glycopyrrolate 0.2 MG/ML 5 ML SYRINGE ONE (13:52)
[2017-06-24] MEDS ORDERED: Lidocaine 1% PF 5 ML VIAL ONE (13:52)
[2017-06-24] MEDS ORDERED: Ondansetron HCl/PF 4 MG/2 ML Vial ONE (13:52)
[2017-06-24] MEDS ORDERED: Propofol 200 MG/20 ML VIAL ONE (13:52)
[2017-06-24] MEDS: CEFAZOLIN/Water 2 GM/20 ML SYRINGE SLOW IVP SCH ×2 (13:56→20:09)
[2017-06-24] MEDS: hydrALAZINE 20 MG/ML VIAL SLOW IVP PRN (14:54)
[2017-06-24] MEDS: traMADol HCl 50 MG TAB PO PRN (14:55)
[2017-06-24] MEDS: Famotidine 20 MG TAB PO SCH ×2 (15:00→20:09)
--- NOTE | 2017-06-24 16:31 | CON ---
DATE OF CONSULTATION: 06/24/2017 REASON FOR CONSULTATION: Septic arthritis, hip. HISTORY OF PRESENT ILLNESS: A 56-year-old patient, first admission to this hospital who has a histor y of type 2 diabetes. Patient developed acute onset of right hip pain at the end of May. Jacki aguilar, came to the emergency room and sent home on symptomatic medication with then worsening and then she was admitted at this time. Initial impression was possible septic hip arthritis. A CT was done which demonstrated a right patellofemoral joint fluid worrisome for septic arthritis. This was aspir ated and submitted to cultures and patient has had a washout. Serendipitously, liver images showed c irrhosis, splenomegaly, and patient had hepatitis serology which showed positive for hepatitis C. Cu rrently, she is a little bit drowsy, but recognizes her family members in the room. She has moderate to severe right hip pain. No headaches. No neck pain, no back pain, no shoulder pain, no dyspnea, cough or sputum production. No abdominal pain. Bladder is full and she feels the need to void, no o ther joint symptoms, no bleeding. PAST MEDICAL HISTORY: Type 2 diabetes, unaware of being hepatitis C positive, history of methampheta mine intravenous use many decades ago. PAST SURGICAL HISTORY: . SOCIAL HISTORY: As above with methamphetamine IV drug use many decades ago. Current smoker. FAMILY HISTORY: Noncontributory. CURRENT MEDICATIONS: Tylenol, [place], Maalox, Tessalon, Ancef, dextrose, Lovenox, Vasotec, Pepcid, gl ucagon, Robitussin, Apresoline, Humulin insulin, Claritin, morphine, Zofran, tramadol, Ambien. PHYSICAL EXAMINATION: VITAL SIGNS: T-max 102, currently 99.9, blood pressure 160/77, pulse 88, respirations 18, O2 sat 94- 96%. GENERAL: Appears in no distress, a little bit drowsy. SKIN: No areas of skin breakdown. She has a few areas of excoriation small in the scalp region. Th e hair has been shaved. There is no lymphadenopathy. HEENT: Ocular movements are conjugate. Oral cavity with numerous missing teeth. The remainder ones with severe decay and gum disease. NECK: Supple, no jugular venous distention or carotid bruits, no thyromegaly. LUNGS: With symmetric clear breath sounds. HEART: S1, S2, regular rate. No S3 or S4. ABDOMEN: Soft, not distended or tender. No ascites. I could not palpate liver or spleen. Positive for bladder distention. EXTREMITIES: No joint inflammatory activity. Moves extremities equally with limitations imposed by the right hip inflammatory process. Pulses are 1+ in dorsalis pedis. NEUROLOGIC: Plantar responses are flexor. No clonus. She is awake, oriented, follows commands, a l ittle bit drowsy. LABORATORY DATA: Sodium 128, creatinine 0.71. Liver profile normal. Albumin 3.0. White cell count 7.6, hemoglobin 15, platelets 200,000, 79% neutrophils, synovial fluid with 166,000 WBCs, a predomin ance of mature neutrophils. We have amphetamines, methamphetamines detected in the toxic screen and opiates as well. Hepatitis C is positive serology. The imaging studies as referred to above. There is an abdominal ultrasound from 06/23/2017 which showed hepatic cirrhosis and cholelithiasis. ASSESSMENT: 1. Chronic hepatitis C with cirrhosis and portal hypertension. 2. Methicillin-sensitive Staphylococcus aureus infection of the right hip joint with bacteremia. 3. History of prior methamphetamine use, but still with positive toxin screen for methamphetamine wi th possible still ongoing IV drug use and possibility of endocarditis needs to be considered. DISCUSSION: Patient will need IV cefazolin or Rocephin. Due to lack of insurance, she will probably need [facility]. Check a 2-D echocardiogram if not ordered yet. We will check hepatitis C, RNA, PCR and genotype in preparati on for treatment in the outpatient setting. We will obtain patient assistance program for one of the very effective hepatitis C treatments available. In view of evidence of cirrhosis and portal hypert ension, we will need EGD to evaluate if she has esophageal varices or not.
[2017-06-24] MEDS: Enoxaparin Sodium 40 MG/0.4 ML SYRINGE SC SCH (20:09)
[2017-06-25] MEDS: hydrALAZINE 20 MG/ML VIAL SLOW IVP PRN (00:48)
[2017-06-25] MEDS: HYDROcodone/Acetaminophen 10/325 mg Tablet PO PRN ×3 (00:52→13:29)
[2017-06-25] MEDS: CEFAZOLIN/Water 2 GM/20 ML SYRINGE SLOW IVP SCH ×3 (04:13→20:39)
[2017-06-25 06:46] LABS: HIV (1/2) Antibody/Antigen Non-Reactive (NonReactive); HIV 1/2 INDEX 0.14 S/CO (<1.00)
[2017-06-25] MEDS: Famotidine 20 MG TAB PO SCH ×2 (08:18→20:39)
--- NOTE | 2017-06-25 10:53 | PDOC.PN ---
- Subjective Encounter Start Date: 06/25/17 Encounter Start Time: 07:50 c/o right hip pain, had fever last night Patient seen and examined. No overnight event - Objective MAR Reviewed: Yes Vital Signs & Weight: Vital Signs (12 hours) Temp Pulse Resp BP BP Pulse Ox 06/25/17 08:18 191/92 H 06/25/17 08:00 100.1 F H 104 H 12 144/77 H 94 L 06/25/17 04:00 98.2 F 99 18 135/71 90 L 06/25/17 00:48 120 H 191/92 H 06/25/17 00:00 102.8 F H 120 H 16 180/84 H 89 L Weight Admit Weight 145 lb Weight 145 lb I&O: 06/24/17 06/25/17 06/26/17 06:59 06:59 06:59 Intake Total 720 240 Output Total 750 Balance 720 -510 Result Diagrams: 06/24/17 05:01 06/24/17 05:01 Additional Labs: Accuchecks 06/25/17 06/24/17 06/24/17 06:01 21:06 16:01 POC Glucose 150 H 213 H 228 H Phys Exam - Physical Examination Constitutional: NAD HEENT: PERRLA, moist MMs, sclera anicteric Neck: no JVD, supple Respiratory: no wheezing, no rales, no rhonchi Cardiovascular: RRR, no significant murmur, no rub Gastrointestinal: soft, non-tender, no distention, positive bowel sounds Musculoskeletal: no edema, pulses present Neurological: non-focal, normal sensation Lymphatic: no nodes Psychiatric: normal affect, A&O x 3 Skin: no rash, normal turgor Dx/Plan (1) Septic arthritis of hip Code(s): M00.9 - PYOGENIC ARTHRITIS, UNSPECIFIED Status: Acute Qualifiers: Septic arthritis organism: staphylococcal Laterality: right Qualified Code(s): M00.051 - Staphylococcal arthritis, right hip (2) Staphylococcus aureus bacteremia with sepsis Code(s): A41.01 - SEPSIS DUE TO METHICILLIN SUSCEPTIBLE STAPHYLOCOCCUS AUREUS Status: Acute (3) Hypokalemia Code(s): E87.6 - HYPOKALEMIA Status: Resolved (4) Hyponatremia Code(s): E87.1 - HYPO-OSMOLALITY AND HYPONATREMIA Status: Acute (5) Right hip joint effusion Code(s): M25.451 - EFFUSION, RIGHT HIP Status: Acute Comment: (6) Cholelithiases Code(s): K80.20 - CALCULUS OF GALLBLADDER W/O CHOLECYSTITIS W/O OBSTRUCTION Status: Chronic Qualifiers: Cholelithiasis location: gallbladder Cholecystitis presence: without cholecystitis Biliary obstruction: without biliary obstruction Qualified Code(s): K80.20 - Calculus of gallbladder without cholecystitis without obstruction (7) Diabetes type 2, controlled Code(s): E11.9 - TYPE 2 DIABETES MELLITUS WITHOUT COMPLICATIONS Status: Chronic (8) Hepatitis C Code(s): B19.20 - UNSPECIFIED VIRAL HEPATITIS C WITHOUT HEPATIC COMA Status: Chronic Qualifiers: Viral hepatitis chronicity: chronic Hepatic coma status: without hepatic coma Qualified Code(s): B18.2 - Chronic viral hepatitis C (9) Hypertension Code(s): I10 - ESSENTIAL (PRIMARY) HYPERTENSION Status: Chronic (10) Liver cirrhosis Code(s): K74.60 - UNSPECIFIED CIRRHOSIS OF LIVER Status: Chronic Qualifiers: Ascites presence: without ascites Comment: may be due to hepatitis C and her alcohol abuse history - Plan cont current plan of care, plan discussed w/ family, continue antibiotics, PT/OT , social services specialist * continue rocephin as per ID * she will need director long term care IV antibiotics on discharge * today Echo * tomorrow PICC line * social work to arrange outpt IV antibiotics * will do repeat labs and repeat blood culture * pain control * continue PT. Review of Systems - Review of Systems Constitutional: fever, weakness. negative: chills, sweats, malaise, other ENT: negative: Ear Pain, Ear Discharge, Nose Pain, Nose Discharge, Nose Congestion, Mouth Pain, Mouth Swelling, Throat Pain, Throat Swelling, Other Respiratory: negative: Cough, Dry, Shortness of Breath, Hemoptysis, SOB with Excertion, Pleuritic Pain, Sputum, Wheezing Cardiovascular: negative: chest pain, palpitations, orthopnea, paroxysmal nocturnal dyspnea, edema, light headedness, other Gastrointestinal: negative: Nausea, Vomiting, Abdominal Pain, Diarrhea, Constipation, Melena, Hematochezia, Other Genitourinary: negative: Dysuria, Frequency, Incontinence, Hematuria, Retention , Other Musculoskeletal: Other (hip pain) - Medications/Allergies Allergies/Adverse Reactions: Allergies Allergy/AdvReac Type Severity Reaction Status Date / Time No Known Allergies Allergy Verified 06/22/17 23:21 Medications: Current Medications Acetaminophen (Tylenol) 650 mg PO Q4H PRN PRN Reason: Headache/Fever or Mild Pain Hydrocodone Bitart/Acetaminophen ([place] 10/325) 1 tab PO Q4H PRN PRN Reason: Pain 1ST LINE Hydrocodone Bitart/Acetaminophen ([place] 10/325) 2 tab PO Q4H PRN PRN Reason: Pain 2ND LINE Last Admin: 06/25/17 09:41 Dose: 2 tab Al Hydroxide/Mg Hydroxide (Maalox) 15 ml PO Q4H PRN PRN Reason: Heartburn or Indigestion Artificial Tears (Tears Naturale) 0 drop EA EYE PRN PRN PRN Reason: Dry Eyes Benzonatate (Tessalon) 100 mg PO Q4H PRN PRN Reason: Cough Cefazolin Sodium (Ancef) 2 gm SLOW IVP 0500,1300,2100 [facility] Last Admin: 06/25/17 04:13 Dose: 2 gm Dextrose/Water (Dextrose 50%) 25 gm SLOW IVP PRN PRN PRN Reason: Hypoglycemia Enalapril Maleate (Vasotec) 2.5 mg PO DAILY [facility] Last Admin: 06/25/17 08:18 Dose: 2.5 mg Enoxaparin Sodium (Lovenox) 40 mg SC 2100 [facility] Last Admin: 06/24/17 20:09 Dose: 40 mg Famotidine (Pepcid) 20 mg PO BID [facility] Last Admin: 06/25/17 08:18 Dose: 20 mg Glucagon (Glucagon) 1 mg IM PRN PRN PRN Reason: Hypoglycemia Guaifenesin (Robitussin Sf) 200 mg PO Q4H PRN PRN Reason: Cough Hydralazine HCl (Apresoline) 10 mg SLOW IVP Q4H PRN PRN Reason: Systolic BP > 180 Last Admin: 06/25/17 00:48 Dose: 10 mg Dextrose/Water (D5w) 1,000 mls @ 0 mls/hr IV .Q0M PRN; As Directed PRN Reason: Hypoglycemia Insulin Human Regular (Humulin R) 0 units SC .MILD SLIDING SCALE PRN PRN Reason: Mild Correctional Scale Last Admin: 06/24/17 16:42 Dose: 3 unit Loratadine (Claritin) 10 mg PO DAILYPRN PRN PRN Reason: Sinus Symptoms Magnesium Hydroxide (Milk Of Magnesium) 30 ml PO DAILYPRN PRN PRN Reason: Constipation Mineral Oil/White Petrolatum (Eucerin Cream) 0 gm TOP BIDPRN PRN PRN Reason: Dry Skin Ondansetron HCl (Zofran Odt) 4 mg PO Q6H PRN PRN Reason: Nausea/Vomiting Ondansetron HCl (Zofran) 4 mg IVP Q6H PRN PRN Reason: Nausea/Vomiting Phenol (Chloraseptic [place] 180 Ml Bot) 0 ml PO PRN PRN PRN Reason: Sore Throat Senna (Senokot) 2 tab PO HSPRN PRN PRN Reason: Constipation Sodium Chloride ([place] Nasal [place] 0.65%) 0 ml EA NARE QIDPRN PRN PRN Reason: Nasal Congestion Tramadol HCl (Ultram) 50 mg PO Q4H PRN PRN Reason: Moderate Pain (4-6) Last Admin: 06/24/17 14:55 Dose: 50 mg Zolpidem Tartrate (Ambien) 5 mg PO HSPRN PRN PRN Reason: Insomnia
[2017-06-25] MEDS: Senokot 8.6 MG TAB PO PRN (13:30)
[2017-06-25] MEDS: Insulin Regular 300 UNITS/3 ML VIAL SC PRN (16:54)
[2017-06-25] MEDS: Enoxaparin Sodium 40 MG/0.4 ML SYRINGE SC SCH (20:39)
[2017-06-26] MEDS: CEFAZOLIN/Water 2 GM/20 ML SYRINGE SLOW IVP SCH ×3 (05:12→20:55)
[2017-06-26 06:14] LABS: ALT (SGPT) 18 U/L (8-55); AST (SGOT) 47 U/L (5-34); Albumin 2.8 g/dL (3.5-5.0); Alkaline Phosphatase 90 U/L (40-150); Anion Gap 11 mmol/L (10-20); BUN (Urea Nitrogen) 30 mg/dL (9.8-20.1); Bilirubin, Total 0.7 mg/dL (0.2-1.2); CRP (Inflammatory) 11.76 mg/dL (= or < 0.5); Calc. Creatinine Clearance 90 mL/min (70-130); Carbon Dioxide 29 mmol/L (22-29); Chloride 90 mmol/L (98-107); Estimated GFR-MDRD 85; Globulin 3.5 g/dL (2.4-3.5); Glucose 129 mg/dL (70-105); Potassium 4.2 mmol/L (3.5-5.1); Protein, Total 6.3 g/dL (6.0-8.3); Sodium 126 mmol/L (136-145)
[2017-06-26 06:37] LABS: Band 6 % (5-11); Eosinophils 2 % (0-10); Hemoglobin 12.6 g/dL (12.0-16.0); Lymphocytes 27 % (21-51); MDiff Complete? YES; Mean Corpuscular HGB CONC 34.1 g/dL (32.0-36.0); Mean Corpuscular Hemoglobin 31.9 pg (27.0-31.0); Mean Corpuscular Volume 93.5 fl (81.0-99.0); Mean Platelet Volume 8.2 fL (7.4-10.4); Monocytes 16 % (0-10); Neutrophil 48 % (42-75); Platelet Count 247 thou/uL (130-400); RBC Distribution Width 12.3 % (11.5-14.5); Reactive Lymphocytes 1 % (0-10); Red Blood Cell (RBC) Count 3.96 mill/uL (4.20-5.40); White Blood Cell (WBC) Count 9.9 thou/uL (4.8-10.8)
[2017-06-26] MEDS: HYDROcodone/Acetaminophen 10/325 mg Tablet PO PRN ×2 (09:03→20:54)
[2017-06-26] MEDS: Famotidine 20 MG TAB PO SCH ×2 (09:03→20:54)
--- NOTE | 2017-06-26 11:34 | PDOC.PN ---
- Subjective Encounter Start Date: 06/26/17 Encounter Start Time: 07:40 pt has lot of pain at right hip, still has fever Patient seen and examined. No overnight events - Objective MAR Reviewed: Yes Vital Signs & Weight: Vital Signs (12 hours) Temp Pulse Resp BP BP Pulse Ox 06/26/17 09:44 191/92 H 06/26/17 08:00 102.2 F H 102 H 20 192/75 H 96 06/26/17 03:46 98 F 94 14 144/72 H 94 L 06/26/17 00:00 100.5 F H 94 18 147/71 H 93 L Weight Admit Weight 145 lb Weight 145 lb I&O: 06/25/17 06/26/17 06/27/17 06:59 06:59 06:59 Intake Total 240 240 Output Total 750 100 Balance -510 140 Result Diagrams: 06/26/17 04:47 06/26/17 04:47 Additional Labs: Accuchecks 06/26/17 06/25/17 06/25/17 05:48 21:06 16:22 POC Glucose 167 H 171 H 217 H 06/25/17 11:27 POC Glucose 197 H Phys Exam - Physical Examination Constitutional: NAD HEENT: PERRLA, moist MMs, sclera anicteric Neck: no JVD, supple Respiratory: no wheezing, no rales, no rhonchi Cardiovascular: RRR, no significant murmur, no rub Gastrointestinal: soft, non-tender, no distention, positive bowel sounds Musculoskeletal: no edema, pulses present wound vac in place Neurological: non-focal, normal sensation Psychiatric: normal affect, A&O x 3 Skin: no rash, normal turgor Dx/Plan (1) Septic arthritis of hip Code(s): M00.9 - PYOGENIC ARTHRITIS, UNSPECIFIED Status: Acute Qualifiers: Septic arthritis organism: staphylococcal Laterality: right Qualified Code(s): M00.051 - Staphylococcal arthritis, right hip (2) Staphylococcus aureus bacteremia with sepsis Code(s): A41.01 - SEPSIS DUE TO METHICILLIN SUSCEPTIBLE STAPHYLOCOCCUS AUREUS Status: Acute (3) Hypokalemia Code(s): E87.6 - HYPOKALEMIA Status: Resolved (4) Hyponatremia Code(s): E87.1 - HYPO-OSMOLALITY AND HYPONATREMIA Status: Acute (5) Right hip joint effusion Code(s): M25.451 - EFFUSION, RIGHT HIP Status: Acute Comment: (6) Cholelithiases Code(s): K80.20 - CALCULUS OF GALLBLADDER W/O CHOLECYSTITIS W/O OBSTRUCTION Status: Chronic Qualifiers: Cholelithiasis location: gallbladder Cholecystitis presence: without cholecystitis Biliary obstruction: without biliary obstruction Qualified Code(s): K80.20 - Calculus of gallbladder without cholecystitis without obstruction (7) Diabetes type 2, controlled Code(s): E11.9 - TYPE 2 DIABETES MELLITUS WITHOUT COMPLICATIONS Status: Chronic (8) Hepatitis C Code(s): B19.20 - UNSPECIFIED VIRAL HEPATITIS C WITHOUT HEPATIC COMA Status: Chronic Qualifiers: Viral hepatitis chronicity: chronic Hepatic coma status: without hepatic coma Qualified Code(s): B18.2 - Chronic viral hepatitis C (9) Hypertension Code(s): I10 - ESSENTIAL (PRIMARY) HYPERTENSION Status: Chronic (10) Liver cirrhosis Code(s): K74.60 - UNSPECIFIED CIRRHOSIS OF LIVER Status: Chronic Qualifiers: Ascites presence: without ascites Comment: may be due to hepatitis C and her alcohol abuse history - Plan cont current plan of care, plan discussed w/ family, continue antibiotics, social services coordinator * continue cefazolin for now * on discharge rocephin daily till August 03 * wound care * social work for outpt IV antibiotics and wound care * as pt has no funding, discharge plan would be challenging. * medication reviewed as below * symptomatic treatment Review of Systems - Review of Systems Constitutional: fever, weakness. negative: chills, sweats, malaise, other Eyes: negative: Pain, Vision Change, Conjunctivae Inflammation, Eyelid Inflammation, Redness, Other ENT: negative: Ear Pain, Ear Discharge, Nose Pain, Nose Discharge, Nose Congestion, Mouth Pain, Mouth Swelling, Throat Pain, Throat Swelling, Other Respiratory: negative: Cough, Dry, Shortness of Breath, Hemoptysis, SOB with Excertion, Pleuritic Pain, Sputum, Wheezing Cardiovascular: negative: chest pain, palpitations, orthopnea, paroxysmal nocturnal dyspnea, edema, light headedness, other Gastrointestinal: negative: Nausea, Vomiting, Abdominal Pain, Diarrhea, Constipation, Melena, Hematochezia, Other Genitourinary: negative: Dysuria, Frequency, Incontinence, Hematuria, Retention , Other Musculoskeletal: Other (hip pain). negative: Neck Pain, Shoulder Pain, Arm Pain , Back Pain, Hand Pain, Leg Pain, Foot Pain - Medications/Allergies Allergies/Adverse Reactions: Allergies Allergy/AdvReac Type Severity Reaction Status Date / Time No Known Allergies Allergy Verified 06/22/17 23:21 Medications: Current Medications Acetaminophen (Tylenol) 650 mg PO Q4H PRN PRN Reason: Headache/Fever or Mild Pain Hydrocodone Bitart/Acetaminophen ([place] 10/325) 1 tab PO Q4H PRN PRN Reason: Pain 1ST LINE Last Admin: 06/26/17 00:13 Dose: 1 tab Hydrocodone Bitart/Acetaminophen ([place] 10/325) 2 tab PO Q4H PRN PRN Reason: Pain 2ND LINE Last Admin: 06/26/17 09:03 Dose: 2 tab Al Hydroxide/Mg Hydroxide (Maalox) 15 ml PO Q4H PRN PRN Reason: Heartburn or Indigestion Artificial Tears (Tears Naturale) 0 drop EA EYE PRN PRN PRN Reason: Dry Eyes Benzonatate (Tessalon) 100 mg PO Q4H PRN PRN Reason: Cough Cefazolin Sodium (Ancef) 2 gm SLOW IVP 0500,1300,2100 [facility] Last Admin: 06/26/17 05:12 Dose: 2 gm Dextrose/Water (Dextrose 50%) 25 gm SLOW IVP PRN PRN PRN Reason: Hypoglycemia Enalapril Maleate (Vasotec) 2.5 mg PO DAILY [facility] Last Admin: 06/26/17 09:44 Dose: 2.5 mg Enoxaparin Sodium (Lovenox) 40 mg SC 2100 [facility] Last Admin: 06/25/17 20:39 Dose: 40 mg Famotidine (Pepcid) 20 mg PO BID [facility] Last Admin: 06/26/17 09:03 Dose: 20 mg Glucagon (Glucagon) 1 mg IM PRN PRN PRN Reason: Hypoglycemia Guaifenesin (Robitussin Sf) 200 mg PO Q4H PRN PRN Reason: Cough Hydralazine HCl (Apresoline) 10 mg SLOW IVP Q4H PRN PRN Reason: Systolic BP > 180 Last Admin: 06/25/17 00:48 Dose: 10 mg Dextrose/Water (D5w) 1,000 mls @ 0 mls/hr IV .Q0M PRN; As Directed PRN Reason: Hypoglycemia Insulin Human Regular (Humulin R) 0 units SC .MILD SLIDING SCALE PRN PRN Reason: Mild Correctional Scale Last Admin: 06/25/17 16:54 Dose: 3 unit Loratadine (Claritin) 10 mg PO DAILYPRN PRN PRN Reason: Sinus Symptoms Magnesium Hydroxide (Milk Of Magnesium) 30 ml PO DAILYPRN PRN PRN Reason: Constipation Mineral Oil/White Petrolatum (Eucerin Cream) 0 gm TOP BIDPRN PRN PRN Reason: Dry Skin Ondansetron HCl (Zofran Odt) 4 mg PO Q6H PRN PRN Reason: Nausea/Vomiting Ondansetron HCl (Zofran) 4 mg IVP Q6H PRN PRN Reason: Nausea/Vomiting Phenol (Chloraseptic [place] 180 Ml Bot) 0 ml PO PRN PRN PRN Reason: Sore Throat Senna (Senokot) 2 tab PO HSPRN PRN PRN Reason: Constipation Last Admin: 06/25/17 13:30 Dose: 2 tab Sodium Chloride ([place] Nasal [place] 0.65%) 0 ml EA NARE QIDPRN PRN PRN Reason: Nasal Congestion Tramadol HCl (Ultram) 50 mg PO Q4H PRN PRN Reason: Moderate Pain (4-6) Last Admin: 06/24/17 14:55 Dose: 50 mg Zolpidem Tartrate (Ambien) 5 mg PO HSPRN PRN PRN Reason: Insomnia
[2017-06-26 14:24] LABS: HCV log10 6.857 (.); Hep C PCR-Quant 7190000 IU/mL (.)
[2017-06-26] MEDS: Enoxaparin Sodium 40 MG/0.4 ML SYRINGE SC SCH (20:54)
[2017-06-26] MEDS: Insulin Regular 300 UNITS/3 ML VIAL SC PRN (21:45)
[2017-06-27] MEDS: HYDROcodone/Acetaminophen 10/325 mg Tablet PO PRN ×2 (01:38→14:54)
[2017-06-27] MEDS: CEFAZOLIN/Water 2 GM/20 ML SYRINGE SLOW IVP SCH ×3 (05:43→20:14)
[2017-06-27] MEDS: Famotidine 20 MG TAB PO SCH ×2 (08:50→20:15)
--- NOTE | 2017-06-27 11:16 | PDOC.PN ---
- Subjective Encounter Start Date: 06/27/17 Encounter Start Time: 08:40 Patient seen and examined. No new complaints. No overnight events - Objective MAR Reviewed: Yes Vital Signs & Weight: Vital Signs (12 hours) Temp Pulse Resp BP BP Pulse Ox 06/27/17 08:50 131/75 06/27/17 08:00 98.3 F 78 20 131/75 96 06/27/17 07:50 98.0 F 75 18 06/27/17 04:40 98.0 F 75 18 116/70 93 L 06/27/17 00:32 98.0 F 85 18 127/66 93 L Weight Admit Weight 145 lb Weight 145 lb I&O: 06/26/17 06/27/17 06/28/17 06:59 06:59 06:59 Intake Total 240 Output Total 100 Balance 140 Result Diagrams: 06/26/17 04:47 06/26/17 04:47 Additional Labs: Accuchecks 06/27/17 06/26/17 06/26/17 04:30 20:39 16:03 POC Glucose 198 H 281 H 282 H Radiology Reviewed by me: Yes (echo- moderate TR) Phys Exam - Physical Examination Constitutional: NAD HEENT: PERRLA, moist MMs, sclera anicteric Neck: no JVD, supple Respiratory: no wheezing, no rales, no rhonchi Cardiovascular: RRR, no rub parasternal mumur Gastrointestinal: soft, non-tender, no distention, positive bowel sounds Musculoskeletal: no edema, pulses present wound vac in place Neurological: non-focal, normal sensation, moves all 4 limbs Lymphatic: no nodes Psychiatric: normal affect, A&O x 3 Skin: no rash, normal turgor Dx/Plan (1) Septic arthritis of hip Code(s): M00.9 - PYOGENIC ARTHRITIS, UNSPECIFIED Status: Acute Qualifiers: Septic arthritis organism: staphylococcal Laterality: right Qualified Code(s): M00.051 - Staphylococcal arthritis, right hip (2) Staphylococcus aureus bacteremia with sepsis Code(s): A41.01 - SEPSIS DUE TO METHICILLIN SUSCEPTIBLE STAPHYLOCOCCUS AUREUS Status: Acute (3) Hypokalemia Code(s): E87.6 - HYPOKALEMIA Status: Resolved (4) Hyponatremia Code(s): E87.1 - HYPO-OSMOLALITY AND HYPONATREMIA Status: Acute (5) Right hip joint effusion Code(s): M25.451 - EFFUSION, RIGHT HIP Status: Acute Comment: (6) Cholelithiases Code(s): K80.20 - CALCULUS OF GALLBLADDER W/O CHOLECYSTITIS W/O OBSTRUCTION Status: Chronic Qualifiers: Cholelithiasis location: gallbladder Cholecystitis presence: without cholecystitis Biliary obstruction: without biliary obstruction Qualified Code(s): K80.20 - Calculus of gallbladder without cholecystitis without obstruction (7) Diabetes type 2, controlled Code(s): E11.9 - TYPE 2 DIABETES MELLITUS WITHOUT COMPLICATIONS Status: Chronic (8) Hepatitis C Code(s): B19.20 - UNSPECIFIED VIRAL HEPATITIS C WITHOUT HEPATIC COMA Status: Chronic Qualifiers: Viral hepatitis chronicity: chronic Hepatic coma status: without hepatic coma Qualified Code(s): B18.2 - Chronic viral hepatitis C (9) Hypertension Code(s): I10 - ESSENTIAL (PRIMARY) HYPERTENSION Status: Chronic (10) Liver cirrhosis Code(s): K74.60 - UNSPECIFIED CIRRHOSIS OF LIVER Status: Chronic Qualifiers: Ascites presence: without ascites Comment: may be due to hepatitis C and her alcohol abuse history (11) Tricuspid regurgitation Code(s): I07.1 - RHEUMATIC TRICUSPID INSUFFICIENCY Status: Acute (12) Amphetamine abuse Code(s): F15.10 - OTHER STIMULANT ABUSE, UNCOMPLICATED Status: Acute - Plan cont current plan of care, plan discussed w/ family, continue antibiotics, PT/OT , aids social worker * continue cefazolin * today plan for PICC line * pain controlled * wound care * social work to arrange iv antibiotics on discharge * need of wound vac will be decided by ortho * medication reviewed as below * symptomatic treatment. Review of Systems - Review of Systems Constitutional: negative: fever, chills, sweats, weakness, malaise, other Respiratory: negative: Cough, Dry, Shortness of Breath, Hemoptysis, SOB with Excertion, Pleuritic Pain, Sputum, Wheezing Cardiovascular: negative: chest pain, palpitations, orthopnea, paroxysmal nocturnal dyspnea, edema, light headedness, other Gastrointestinal: negative: Nausea, Vomiting, Abdominal Pain, Diarrhea, Constipation, Melena, Hematochezia, Other Genitourinary: negative: Dysuria, Frequency, Incontinence, Hematuria, Retention , Other Musculoskeletal: negative: Neck Pain, Shoulder Pain, Arm Pain, Back Pain, Hand Pain, Leg Pain, Foot Pain, Other Skin: negative: Rash, Lesions, Michael, Bruising, Other - Medications/Allergies Allergies/Adverse Reactions: Allergies Allergy/AdvReac Type Severity Reaction Status Date / Time No Known Allergies Allergy Verified 06/22/17 23:21 Medications: Current Medications Acetaminophen (Tylenol) 650 mg PO Q4H PRN PRN Reason: Headache/Fever or Mild Pain Hydrocodone Bitart/Acetaminophen ([place] 10/325) 1 tab PO Q4H PRN PRN Reason: Pain 1ST LINE Last Admin: 06/26/17 00:13 Dose: 1 tab Hydrocodone Bitart/Acetaminophen ([place] 10/325) 2 tab PO Q4H PRN PRN Reason: Pain 2ND LINE Last Admin: 06/27/17 01:38 Dose: 2 tab Al Hydroxide/Mg Hydroxide (Maalox) 15 ml PO Q4H PRN PRN Reason: Heartburn or Indigestion Artificial Tears (Tears Naturale) 0 drop EA EYE PRN PRN PRN Reason: Dry Eyes Benzonatate (Tessalon) 100 mg PO Q4H PRN PRN Reason: Cough Cefazolin Sodium (Ancef) 2 gm SLOW IVP 0500,1300,2100 [facility] Last Admin: 06/27/17 05:43 Dose: 2 gm Dextrose/Water (Dextrose 50%) 25 gm SLOW IVP PRN PRN PRN Reason: Hypoglycemia Enalapril Maleate (Vasotec) 2.5 mg PO DAILY [facility] Last Admin: 06/27/17 08:50 Dose: 2.5 mg Enoxaparin Sodium (Lovenox) 40 mg SC 2100 [facility] Last Admin: 06/26/17 20:54 Dose: 40 mg Famotidine (Pepcid) 20 mg PO BID [facility] Last Admin: 06/27/17 08:50 Dose: 20 mg Glucagon (Glucagon) 1 mg IM PRN PRN PRN Reason: Hypoglycemia Guaifenesin (Robitussin Sf) 200 mg PO Q4H PRN PRN Reason: Cough Hydralazine HCl (Apresoline) 10 mg SLOW IVP Q4H PRN PRN Reason: Systolic BP > 180 Last Admin: 06/25/17 00:48 Dose: 10 mg Dextrose/Water (D5w) 1,000 mls @ 0 mls/hr IV .Q0M PRN; As Directed PRN Reason: Hypoglycemia Insulin Human Regular (Humulin R) 0 units SC .MILD SLIDING SCALE PRN PRN Reason: Mild Correctional Scale Last Admin: 06/26/17 21:45 Dose: 4 unit Loratadine (Claritin) 10 mg PO DAILYPRN PRN PRN Reason: Sinus Symptoms Magnesium Hydroxide (Milk Of Magnesium) 30 ml PO DAILYPRN PRN PRN Reason: Constipation Mineral Oil/White Petrolatum (Eucerin Cream) 0 gm TOP BIDPRN PRN PRN Reason: Dry Skin Ondansetron HCl (Zofran Odt) 4 mg PO Q6H PRN PRN Reason: Nausea/Vomiting Ondansetron HCl (Zofran) 4 mg IVP Q6H PRN PRN Reason: Nausea/Vomiting Phenol (Chloraseptic [place] 180 Ml Bot) 0 ml PO PRN PRN PRN Reason: Sore Throat Senna (Senokot) 2 tab PO HSPRN PRN PRN Reason: Constipation Last Admin: 06/25/17 13:30 Dose: 2 tab Sodium Chloride ([place] Nasal [place] 0.65%) 0 ml EA NARE QIDPRN PRN PRN Reason: Nasal Congestion Tramadol HCl (Ultram) 50 mg PO Q4H PRN PRN Reason: Moderate Pain (4-6) Last Admin: 06/24/17 14:55 Dose: 50 mg Zolpidem Tartrate (Ambien) 5 mg PO HSPRN PRN PRN Reason: Insomnia Last Admin: 06/27/17 01:39 Dose: 5 mg
--- NOTE | 2017-06-27 14:23 | SPC ---
SONOGRAPHIC GUIDED LEFT UPPER EXTREMITY PICC PLACEMENT: HISTORY: Hip infection. FINDINGS: After explaining the procedure and obtaining informed consent, the left upper extremity was prepped a nd draped in the usual sterile fashion. Sterile technique, buffered local anesthesia, sonographic gu idance, and a 22 gauge needle were used to carefully access the left basilic vein. The standard tech nique was then used to place the tip of a 5 [place] single-lumen PICC, so that the tip lies at the lev el of the superior vena cava. the catheter was flushed and secured externally. The patient tolerate d the procedure well and was returned in unchanged condition. IMPRESSION: Technically successful left upper extremity peripherally inserted central catheter placement. The ca theter is now ready for use. POS: DEANN
--- NOTE | 2017-06-27 14:33 | PRG ---
DATE OF SERVICE: 06/27/2017 The patient was ambulating when I arrived in the room, she is doing actually pretty good considering the inflammatory process in the left hip. No headaches, no respiratory symptoms. She is constipated now for 7 days. No abdominal pain. PHYSICAL EXAMINATION: VITAL SIGNS: T-max 102 yesterday at 8:00 a.m. She has been afebrile since. BP 130/75, respiratory rate 20, O2 sat 96%. GENERAL: Chronically ill appearing. LUNGS: Lungs with symmetric clear breath sounds. HEART: S1, S2, regular rate. EXTREMITIES: Good strength in lower extremities with limitations imposed by the inflammatory process . White cell count 9.99, hemoglobin 12.6, platelets 247, creatinine 0.71. CRP 11.76. CURRENT MEDICATIONS: Cefazolin. ASSESSMENT AND DISCUSSION: Chronic hepatitis C with cirrhosis and portal hypertension, methicillin-s usceptible Staphylococcus aureus infection right hip and bacteremia. A 2D echocardiogram did not sh ow any vegetations. The plan is to continue 6 weeks of therapy with cefazolin. Weekly labs will hav e to be transitioned to Rocephin because of lack of insurance to allow once daily treatment downstair s in the oncology area.
[2017-06-27] MEDS ORDERED: Fentanyl 100 MCG/2 ML VIAL SLOW IVP PRN (15:23)
[2017-06-27] MEDS ORDERED: Morphine 5 MG/ML SYRINGE SLOW IVP PRN (15:24)
[2017-06-27] MEDS ORDERED: Fentanyl 100 MCG/2 ML VIAL SLOW IVP SCH (15:30)
[2017-06-27] MEDS ORDERED: Lidocaine Viscous Sol 2% 15 ml UD Cup SSP PRN (15:30)
[2017-06-27] MEDS: Insulin Regular 300 UNITS/3 ML VIAL SC PRN (18:10)
[2017-06-27] MEDS: Enoxaparin Sodium 40 MG/0.4 ML SYRINGE SC SCH (20:14)
[2017-06-27] MEDS: Senokot 8.6 MG TAB PO PRN (20:23)
[2017-06-28] MEDS: HYDROcodone/Acetaminophen 10/325 mg Tablet PO PRN ×3 (00:10→20:37)
[2017-06-28] MEDS: CEFAZOLIN/Water 2 GM/20 ML SYRINGE SLOW IVP SCH ×3 (05:52→20:38)
[2017-06-28] MEDS: Insulin Regular 300 UNITS/3 ML VIAL SC PRN ×4 (05:56→20:47)
[2017-06-28] MEDS: Famotidine 20 MG TAB PO SCH ×2 (08:27→20:36)
[2017-06-28] MEDS: Polyethylene Glycol 3350 17 GM Packet PO SCH (08:28)
[2017-06-28] MEDS ORDERED: Fleet Enema 133 ML BOT PR SCH (09:45)
[2017-06-28 10:20] LABS: Fungus Stain Final report (.)
--- NOTE | 2017-06-28 11:03 | PDOC.PN ---
- Subjective Encounter Start Date: 06/28/17 Encounter Start Time: 08:30 pt does not have BM for last several days, no abdominal pain, no fever - Objective MAR Reviewed: Yes Vital Signs & Weight: Vital Signs (12 hours) Temp Pulse Resp BP BP Pulse Ox 06/28/17 08:27 137/71 06/28/17 07:19 97.7 F 84 16 137/71 96 06/28/17 05:53 81 16 133/72 Weight Admit Weight 145 lb Weight 145 lb I&O: 06/27/17 06/28/17 06/29/17 06:59 06:59 06:59 Intake Total 600 Balance 600 Result Diagrams: 06/26/17 04:47 06/26/17 04:47 Additional Labs: Accuchecks 06/28/17 06/27/17 06/27/17 05:53 22:28 16:29 POC Glucose 155 H 201 H 261 H 06/27/17 13:24 POC Glucose 194 H Phys Exam - Physical Examination Constitutional: NAD HEENT: PERRLA, moist MMs, sclera anicteric Neck: no JVD, supple Respiratory: no wheezing, no rales, no rhonchi Cardiovascular: RRR, no significant murmur, no rub Gastrointestinal: soft, non-tender, no distention, positive bowel sounds Musculoskeletal: no edema, pulses present wound with wound vac in place Neurological: non-focal, normal sensation Psychiatric: normal affect, A&O x 3 Skin: no rash, normal turgor Dx/Plan (1) Septic arthritis of hip Code(s): M00.9 - PYOGENIC ARTHRITIS, UNSPECIFIED Status: Acute Qualifiers: Septic arthritis organism: staphylococcal Laterality: right Qualified Code(s): M00.051 - Staphylococcal arthritis, right hip (2) Staphylococcus aureus bacteremia with sepsis Code(s): A41.01 - SEPSIS DUE TO METHICILLIN SUSCEPTIBLE STAPHYLOCOCCUS AUREUS Status: Acute (3) Hypokalemia Code(s): E87.6 - HYPOKALEMIA Status: Resolved (4) Hyponatremia Code(s): E87.1 - HYPO-OSMOLALITY AND HYPONATREMIA Status: Acute (5) Right hip joint effusion Code(s): M25.451 - EFFUSION, RIGHT HIP Status: Acute Comment: (6) Cholelithiases Code(s): K80.20 - CALCULUS OF GALLBLADDER W/O CHOLECYSTITIS W/O OBSTRUCTION Status: Chronic Qualifiers: Cholelithiasis location: gallbladder Cholecystitis presence: without cholecystitis Biliary obstruction: without biliary obstruction Qualified Code(s): K80.20 - Calculus of gallbladder without cholecystitis without obstruction (7) Diabetes type 2, controlled Code(s): E11.9 - TYPE 2 DIABETES MELLITUS WITHOUT COMPLICATIONS Status: Chronic (8) Hepatitis C Code(s): B19.20 - UNSPECIFIED VIRAL HEPATITIS C WITHOUT HEPATIC COMA Status: Chronic Qualifiers: Viral hepatitis chronicity: chronic Hepatic coma status: without hepatic coma Qualified Code(s): B18.2 - Chronic viral hepatitis C (9) Hypertension Code(s): I10 - ESSENTIAL (PRIMARY) HYPERTENSION Status: Chronic (10) Liver cirrhosis Code(s): K74.60 - UNSPECIFIED CIRRHOSIS OF LIVER Status: Chronic Qualifiers: Ascites presence: without ascites Comment: may be due to hepatitis C and her alcohol abuse history (11) Tricuspid regurgitation Code(s): I07.1 - RHEUMATIC TRICUSPID INSUFFICIENCY Status: Acute (12) Amphetamine abuse Code(s): F15.10 - OTHER STIMULANT ABUSE, UNCOMPLICATED Status: Acute - Plan cont current plan of care, plan discussed w/ family, continue antibiotics, psychiatric social worker * will give fleet enema today * stool softener * pain controlled * will need arrangement for wound vac and IV antibiotics on discharge * medication reviewed as below * symptomatic treatment. Review of Systems - Review of Systems Constitutional: negative: fever, chills, sweats, weakness, malaise, other Eyes: negative: Pain, Vision Change, Conjunctivae Inflammation, Eyelid Inflammation, Redness, Other ENT: negative: Ear Pain, Ear Discharge, Nose Pain, Nose Discharge, Nose Congestion, Mouth Pain, Mouth Swelling, Throat Pain, Throat Swelling, Other Respiratory: negative: Cough, Dry, Shortness of Breath, Hemoptysis, SOB with Excertion, Pleuritic Pain, Sputum, Wheezing Cardiovascular: negative: chest pain, palpitations, orthopnea, paroxysmal nocturnal dyspnea, edema, light headedness, other Gastrointestinal: Constipation. negative: Nausea, Vomiting, Abdominal Pain, Diarrhea, Melena, Hematochezia, Other Musculoskeletal: Other (hip pain) - Medications/Allergies Allergies/Adverse Reactions: Allergies Allergy/AdvReac Type Severity Reaction Status Date / Time No Known Allergies Allergy Verified 06/22/17 23:21 Medications: Current Medications Acetaminophen (Tylenol) 650 mg PO Q4H PRN PRN Reason: Headache/Fever or Mild Pain Hydrocodone Bitart/Acetaminophen ([place] 10/325) 1 tab PO Q4H PRN PRN Reason: Pain 1ST LINE Last Admin: 06/26/17 00:13 Dose: 1 tab Hydrocodone Bitart/Acetaminophen ([place] 10/325) 2 tab PO Q4H PRN PRN Reason: Pain 2ND LINE Last Admin: 06/28/17 00:10 Dose: 2 tab Al Hydroxide/Mg Hydroxide (Maalox) 15 ml PO Q4H PRN PRN Reason: Heartburn or Indigestion Artificial Tears (Tears Naturale) 0 drop EA EYE PRN PRN PRN Reason: Dry Eyes Benzonatate (Tessalon) 100 mg PO Q4H PRN PRN Reason: Cough Cefazolin Sodium (Ancef) 2 gm SLOW IVP 0500,1300,2100 [facility] Last Admin: 06/28/17 05:52 Dose: 2 gm Dextrose/Water (Dextrose 50%) 25 gm SLOW IVP PRN PRN PRN Reason: Hypoglycemia Enalapril Maleate (Vasotec) 2.[address] [facility] Last Admin: 06/28/17 08:27 Dose: 2.5 mg Enoxaparin Sodium (Lovenox) [address] [facility] Last Admin: 06/27/17 20:14 Dose: 40 mg Famotidine (Pepcid) [address] [facility] Last Admin: 06/28/17 08:27 Dose: 20 mg Fentanyl (Sublimaze) 50 mcg SLOW IVP [place] PRN PRN Reason: . Glucagon (Glucagon) 1 mg IM PRN PRN PRN Reason: Hypoglycemia Guaifenesin (Robitussin Sf) 200 mg PO Q4H PRN PRN Reason: Cough Hydralazine HCl (Apresoline) 10 mg SLOW IVP Q4H PRN PRN Reason: Systolic BP > 180 Last Admin: 06/25/17 00:48 Dose: 10 mg Dextrose/Water (D5w) 1,000 mls @ 0 mls/hr IV .Q0M PRN; As Directed PRN Reason: Hypoglycemia Insulin Human Regular (Humulin R) 0 units SC .MILD SLIDING SCALE PRN PRN Reason: Mild Correctional Scale Last Admin: 06/28/17 05:56 Dose: 2 unit Lidocaine HCl (Xylocaine 2% Viscous) 15 ml SSP [place] PRN PRN Reason: Dressing/Vac Changes Loratadine (Claritin) 10 mg PO DAILYPRN PRN PRN Reason: Sinus Symptoms Magnesium Hydroxide (Milk Of Magnesium) 30 ml PO DAILYPRN PRN PRN Reason: Constipation Last Admin: 06/27/17 20:23 Dose: 30 ml Mineral Oil/White Petrolatum (Eucerin Cream) 0 gm TOP BIDPRN PRN PRN Reason: Dry Skin Morphine Sulfate (Morphine) 4 mg SLOW IVP Q4H PRN PRN Reason: Pain Last Admin: 06/27/17 18:27 Dose: 4 mg Ondansetron HCl (Zofran Odt) 4 mg PO Q6H PRN PRN Reason: Nausea/Vomiting Ondansetron HCl (Zofran) 4 mg IVP Q6H PRN PRN Reason: Nausea/Vomiting Phenol (Chloraseptic [place] 180 Ml Bot) 0 ml PO PRN PRN PRN Reason: Sore Throat Polyethylene Glycol (Miralax) [address] [facility] Last Admin: 06/28/17 08:28 Dose: 17 gm Senna (Senokot) 2 tab PO HSPRN PRN PRN Reason: Constipation Last Admin: 06/27/17 20:23 Dose: 2 tab Sodium Biphosphate/Sodium Phosphate ([place] Enema) [address] [place] [address] [facility] Stop: 06/28/17 12:00 Sodium Chloride ([place] Nasal [place] 0.65%) 0 ml EA NARE QIDPRN PRN PRN Reason: Nasal Congestion Sodium Chloride (Flush - Normal Saline) 10 ml IVF Q12HR [facility] Last Admin: 06/28/17 08:28 Dose: 10 ml Sodium Chloride (Flush - Normal Saline) 10 ml IVF PRN PRN PRN Reason: Saline Flush Tramadol HCl (Ultram) 50 mg PO Q4H PRN PRN Reason: Moderate Pain (4-6) Last Admin: 06/24/17 14:55 Dose: 50 mg Zolpidem Tartrate (Ambien) 5 mg PO HSPRN PRN PRN Reason: Insomnia Last Admin: 06/27/17 01:39 Dose: 5 mg
[2017-06-28] MEDS ORDERED: Heparin 10,000 UNITS/ 10 ML VIAL ONE (15:15)
[2017-06-28 17:17] LABS: Hepatitis C RNA-PCR Positive (Negative)
[2017-06-28] MEDS: Enoxaparin Sodium 40 MG/0.4 ML SYRINGE SC SCH (20:38)
[2017-06-29] MEDS: HYDROcodone/Acetaminophen 10/325 mg Tablet PO PRN ×2 (04:50→10:18)
[2017-06-29] MEDS: CEFAZOLIN/Water 2 GM/20 ML SYRINGE SLOW IVP SCH ×3 (04:51→20:31)
[2017-06-29] MEDS: traMADol HCl 50 MG TAB PO PRN (06:59)
[2017-06-29] MEDS: Insulin Regular 300 UNITS/3 ML VIAL SC PRN (07:01)
[2017-06-29] MEDS: Famotidine 20 MG TAB PO SCH ×2 (08:40→20:30)
[2017-06-29] MEDS: Polyethylene Glycol 3350 17 GM Packet PO SCH ×2 (08:41→08:44)
[2017-06-29] MEDS ORDERED: diphenhydrAMINE 25 MG CAP PO PRN (09:45)
--- NOTE | 2017-06-29 10:28 | PDOC.PN ---
- Subjective Encounter Start Date: 06/29/17 Encounter Start Time: 08:00 -: old records requested/rev - Objective MAR Reviewed: Yes Vital Signs & Weight: Vital Signs (12 hours) Temp Pulse Resp BP BP Pulse Ox 06/29/17 08:41 177/77 H 06/29/17 07:25 98.6 F 88 14 177/77 H 94 L 06/29/17 05:13 99.3 F 91 16 163/84 H 95 06/29/17 00:37 98.5 F 85 16 138/72 95 Weight Admit Weight 145 lb Weight 145 lb I&O: 06/28/17 06/29/17 06/30/17 06:59 06:59 06:59 Intake Total 600 1250 Balance 600 1250 Result Diagrams: 06/26/17 04:47 06/26/17 04:47 Additional Labs: Accuchecks 06/29/17 06/28/17 06/28/17 05:48 20:39 15:50 POC Glucose 268 H 152 H 175 H 06/28/17 10:49 POC Glucose 322 H Phys Exam - Physical Examination Constitutional: NAD HEENT: PERRLA, moist MMs, sclera anicteric Neck: no JVD, supple Respiratory: no wheezing, no rales, no rhonchi Cardiovascular: RRR, no significant murmur, no rub Gastrointestinal: soft, non-tender, no distention, positive bowel sounds Musculoskeletal: no edema, pulses present wound vac in place Neurological: non-focal, normal sensation Psychiatric: normal affect, A&O x 3 Skin: no rash, normal turgor Dx/Plan (1) Septic arthritis of hip Code(s): M00.9 - PYOGENIC ARTHRITIS, UNSPECIFIED Status: Acute Qualifiers: Septic arthritis organism: staphylococcal Laterality: right Qualified Code(s): M00.051 - Staphylococcal arthritis, right hip (2) Staphylococcus aureus bacteremia with sepsis Code(s): A41.01 - SEPSIS DUE TO METHICILLIN SUSCEPTIBLE STAPHYLOCOCCUS AUREUS Status: Acute (3) Hypokalemia Code(s): E87.6 - HYPOKALEMIA Status: Resolved (4) Hyponatremia Code(s): E87.1 - HYPO-OSMOLALITY AND HYPONATREMIA Status: Acute (5) Right hip joint effusion Code(s): M25.451 - EFFUSION, RIGHT HIP Status: Acute Comment: (6) Cholelithiases Code(s): K80.20 - CALCULUS OF GALLBLADDER W/O CHOLECYSTITIS W/O OBSTRUCTION Status: Chronic Qualifiers: Cholelithiasis location: gallbladder Cholecystitis presence: without cholecystitis Biliary obstruction: without biliary obstruction Qualified Code(s): K80.20 - Calculus of gallbladder without cholecystitis without obstruction (7) Diabetes type 2, controlled Code(s): E11.9 - TYPE 2 DIABETES MELLITUS WITHOUT COMPLICATIONS Status: Chronic (8) Hepatitis C Code(s): B19.20 - UNSPECIFIED VIRAL HEPATITIS C WITHOUT HEPATIC COMA Status: Chronic Qualifiers: Viral hepatitis chronicity: chronic Hepatic coma status: without hepatic coma Qualified Code(s): B18.2 - Chronic viral hepatitis C (9) Hypertension Code(s): I10 - ESSENTIAL (PRIMARY) HYPERTENSION Status: Chronic (10) Liver cirrhosis Code(s): K74.60 - UNSPECIFIED CIRRHOSIS OF LIVER Status: Chronic Qualifiers: Ascites presence: without ascites Comment: may be due to hepatitis C and her alcohol abuse history (11) Tricuspid regurgitation Code(s): I07.1 - RHEUMATIC TRICUSPID INSUFFICIENCY Status: Acute (12) Amphetamine abuse Code(s): F15.10 - OTHER STIMULANT ABUSE, UNCOMPLICATED Status: Acute - Plan cont current plan of care, plan discussed w/ family, continue antibiotics, PT/OT , social work case manager * continue wound care with wound vac * continue cefazolin for now, on discharge rocephin * pain controlled * add glyburide * medication reviewed as below * symptomatic treatment * discussed with family * social work for wound vac and outpt IV antibiotics arrangement. * add lisinopril 5 mg po daily Review of Systems - Review of Systems ENT: negative: Ear Pain, Ear Discharge, Nose Pain, Nose Discharge, Nose Congestion, Mouth Pain, Mouth Swelling, Throat Pain, Throat Swelling, Other Respiratory: negative: Cough, Dry, Shortness of Breath, Hemoptysis, SOB with Excertion, Pleuritic Pain, Sputum, Wheezing Cardiovascular: negative: chest pain, palpitations, orthopnea, paroxysmal nocturnal dyspnea, edema, light headedness, other Gastrointestinal: negative: Nausea, Vomiting, Abdominal Pain, Diarrhea, Constipation, Melena, Hematochezia, Other Genitourinary: negative: Dysuria, Frequency, Incontinence, Hematuria, Retention , Other Musculoskeletal: negative: Neck Pain, Shoulder Pain, Arm Pain, Back Pain, Hand Pain, Leg Pain, Foot Pain, Other Skin: negative: Rash, Lesions, Michael, Bruising, Other - Medications/Allergies Allergies/Adverse Reactions: Allergies Allergy/AdvReac Type Severity Reaction Status Date / Time No Known Allergies Allergy Verified 06/22/17 23:21 Medications: Current Medications Acetaminophen (Tylenol) 650 mg PO Q4H PRN PRN Reason: Headache/Fever or Mild Pain Hydrocodone Bitart/Acetaminophen ([place] 10/325) 1 tab PO Q4H PRN PRN Reason: Pain 1ST LINE Last Admin: 06/26/17 00:13 Dose: 1 tab Hydrocodone Bitart/Acetaminophen ([place] 10/325) 2 tab PO Q4H PRN PRN Reason: Pain 2ND LINE Last Admin: 06/29/17 10:18 Dose: 2 tab Al Hydroxide/Mg Hydroxide (Maalox) 15 ml PO Q4H PRN PRN Reason: Heartburn or Indigestion Artificial Tears (Tears Naturale) 0 drop EA EYE PRN PRN PRN Reason: Dry Eyes Benzonatate (Tessalon) 100 mg PO Q4H PRN PRN Reason: Cough Cefazolin Sodium (Ancef) 2 gm SLOW IVP 0500,1300,2100 ON LICENSE OF [facility] Last Admin: 06/29/17 04:51 Dose: 2 gm Dextrose/Water (Dextrose 50%) 25 gm SLOW IVP PRN PRN PRN Reason: Hypoglycemia Diphenhydramine HCl (Benadryl) 25 mg PO Q4H PRN PRN Reason: Itching Last Admin: 06/29/17 10:18 Dose: 25 mg Enalapril Maleate (Vasotec) 2.5 mg PO DAILY ON LICENSE OF [facility] Last Admin: 06/29/17 08:41 Dose: 2.5 mg Enoxaparin Sodium (Lovenox) 40 mg SC 2100 ON LICENSE OF [facility] Last Admin: 06/28/17 20:38 Dose: 40 mg Famotidine (Pepcid) 20 mg PO BID ON LICENSE OF [facility] Last Admin: 06/29/17 08:40 Dose: 20 mg Fentanyl (Sublimaze) 50 mcg SLOW IVP WILLCALL PRN PRN Reason: . Glucagon (Glucagon) 1 mg IM PRN PRN PRN Reason: Hypoglycemia Guaifenesin (Robitussin Sf) 200 mg PO Q4H PRN PRN Reason: Cough Hydralazine HCl (Apresoline) 10 mg SLOW IVP Q4H PRN PRN Reason: Systolic BP > 180 Last Admin: 06/25/17 00:48 Dose: 10 mg Dextrose/Water (D5w) 1,000 mls @ 0 mls/hr IV .Q0M PRN; As Directed PRN Reason: Hypoglycemia Insulin Human Regular (Humulin R) 0 units SC .MILD SLIDING SCALE PRN PRN Reason: Mild Correctional Scale Last Admin: 06/29/17 07:01 Dose: 4 unit Lidocaine HCl (Xylocaine 2% Viscous) 15 ml SSP WILLCALL PRN PRN Reason: Dressing/Vac Changes Loratadine (Claritin) 10 mg PO DAILYPRN PRN PRN Reason: Sinus Symptoms Magnesium Hydroxide (Milk Of Magnesium) 30 ml PO DAILYPRN PRN PRN Reason: Constipation Last Admin: 06/27/17 20:23 Dose: 30 ml Mineral Oil/White Petrolatum (Eucerin Cream) 0 gm TOP BIDPRN PRN PRN Reason: Dry Skin Morphine Sulfate (Morphine) 4 mg SLOW IVP Q4H PRN PRN Reason: Pain Last Admin: 06/27/17 18:27 Dose: 4 mg Ondansetron HCl (Zofran Odt) 4 mg PO Q6H PRN PRN Reason: Nausea/Vomiting Ondansetron HCl (Zofran) 4 mg IVP Q6H PRN PRN Reason: Nausea/Vomiting Phenol (Chloraseptic [place] 180 Ml Bot) 0 ml PO PRN PRN PRN Reason: Sore Throat Polyethylene Glycol (Miralax) 17 gm PO DAILY ON LICENSE OF [facility] Last Admin: 06/29/17 08:44 Dose: Not Given Senna (Senokot) 2 tab PO HSPRN PRN PRN Reason: Constipation Last Admin: 06/27/17 20:23 Dose: 2 tab Sodium Chloride (Retsof Nasal [place] 0.65%) 0 ml EA NARE QIDPRN PRN PRN Reason: Nasal Congestion Sodium Chloride (Flush - Normal Saline) 10 ml IVF Q12HR ON LICENSE OF [facility] Last Admin: 06/28/17 20:38 Dose: 10 ml Sodium Chloride (Flush - Normal Saline) 10 ml IVF PRN PRN PRN Reason: Saline Flush Last Admin: 06/29/17 04:51 Dose: 10 ml Tramadol HCl (Ultram) 50 mg PO Q4H PRN PRN Reason: Moderate Pain (4-6) Last Admin: 06/29/17 06:59 Dose: 50 mg Zolpidem Tartrate (Ambien) 5 mg PO HSPRN PRN PRN Reason: Insomnia Last Admin: 06/27/17 01:39 Dose: 5 mg
[2017-06-29] MEDS ORDERED: glyBURIDE 2.5 MG TAB PO SCH (11:00)
[2017-06-29] MEDS ORDERED: Lisinopril 5 MG TAB PO SCH (11:00)
[2017-06-29 20:19] VITALS: BP 143/76; TEMP 99.2
[2017-06-29] MEDS: Enoxaparin Sodium 40 MG/0.4 ML SYRINGE SC SCH (20:31)
[2017-06-30] MEDS ORDERED: glyBURIDE 5 MG TAB PO SCH (08:00)
[2017-06-30] MEDS ORDERED: Lisinopril 5 MG TAB PO SCH (09:00)
--- NOTE | 2017-06-30 10:12 | DIS ---
DATE OF ADMISSION: 06/22/2017 DATE OF DISCHARGE: 06/29/2017 PRIMARY CARE PHYSICIAN: [facility] call admission. DISCHARGE DISPOSITION: Home with outpatient IV antibiotic therapy. PRIMARY DISCHARGE DIAGNOSES: 1. Sepsis with Staphylococcus aureus bacteremia. 2. Right hip septic arthritis. 3. Hyponatremia. 4. Amphetamine abuse. 5. New diagnosis of liver cirrhosis. 6. Chronic hepatitis C. 7. Hypokalemia, corrected. 8. Asymptomatic cholelithiasis. 9. Tricuspid regurgitation. SECONDARY DISCHARGE DIAGNOSES: Diabetes type 2, hypertension, and polysubstance abuse. PRIMARY PROCEDURES/OPERATIONS: 1. CT guided hip aspiration. 2. Septic right hip arthrocentesis. 3. PICC line. RADIOLOGICAL INVESTIGATION: Abdomen and pelvis CT scan showed right hip effusion. Finding also show ed cirrhosis of liver and cholelithiasis. Echocardiography showed tricuspid regurgitation. Abdomina l ultrasound showed cholelithiasis and cirrhosis of liver. SIGNIFICANT LABORATORY DATA: Hemoglobin 12.6, creatinine 0.71, sodium 126, CRP 11.76, synovial fluid consistent with septic arthritis. Urine drug screen positive for amphetamine and methamphetamine. Hepatitis C positive. Culture from blood positive for MSSA and culture from hip joint consistent wit h MSSA. DISCHARGE MEDICATIONS: The patient will have Rocephin 2 gram IV daily till 08/03/2017. The patient will have weekly CBC, CMP, CRP and patient will follow up with orthopedic physician and Dr. Morales to decide to stop therapy. Aspirin 81 mg p.o. b.i.d. for DVT prophylaxis, Vasotec 2.5 mg p.o. daily, Pe pcid 20 mg p.o. b.i.d., [place] 10 one or two tablets q.4 hourly p.r.n., metformin 1000 mg p.o. b.i.d., Florastor 250 mg p.o. daily. CONTRAINDICATIONS: None. CODE STATUS: FULL CODE. INPATIENT CONSULTANTS: Dr. Olimpia Rodriguez was consulted while in hospital. Dr. Morales was consulted wh ile in hospital. TEST RESULTS PENDING ON DISCHARGE: None. ALLERGIES: No known drug allergy. DISCHARGE PLAN: Post hospital, patient will have everyday outpatient basis IV antibiotic therapy in our hospital. She will follow with Dr. Olimpia Rodriguez and Dr. Morales as instructed. HOSPITAL COURSE: A 56-year-old female who was admitted by Dr. Nilton Dodd. Please see his H&P for further details. This patient was brought to ER for right hip pain. Initially, CT of the abdomen an d pelvis suspected right hip effusion and she had incidental finding of cholelithiasis and cirrhosis of liver. She was admitted to surgical floor under observation. We changed to inpatient status. While in hosp ital, she developed high grade fever. CT guided aspiration of hip joint was done which was consisten t with septic arthritis. We consulted orthopedic physician and they did hip joint washout subsequent ly at surgical site. She required wound VAC. Her blood culture was positive as well as her fluid from hip joint was also positive for Staph. While in hospital, she was given cefazolin as per Dr. Morales guidance and on discharge we changed to R ocephin daily till 08/03/2017. During this hospital course, we controlled her diabetes and blood pressure with the above-mentioned m edications. For better blood sugar control, we also added glyburide 5 mg p.o. daily. All new medica tion prescriptions given to her. This patient was discharged yesterday without my notice. So I sent all prescriptions today to her harjit. Please see my progress note from yesterday for further details.
== END 2017-06-29 23:14 | disposition home or self-care (01) | DRG 872 ==
LOC: ERS 18:15 → SJJU 21:34 → OBSVTOIN 21:34
PROVIDERS: ADMIT Internal Medicine Addiction Medicine; ATTEND Internal Medicine Addiction Medicine
PROC: 0S993ZZ Drainage of Right Hip Joint, Percutaneous Approach (ICD-10-PCS; 2017-06-23)
PROC: 0S9930Z Drainage of Right Hip Joint with Drainage Device, Percutaneous Approach (ICD-10-PCS; 2017-06-24)
PROC: 02HV33Z Insertion of Infusion Device into Superior Vena Cava, Percutaneous Approach (ICD-10-PCS; principal; 2017-06-27)
DX: A41.01 Sepsis due to Methicillin susceptible Staphylococcus aureus (principal); K76.6 Portal hypertension; E11.618 Type 2 diabetes mellitus with other diabetic arthropathy; M00.051 Staphylococcal arthritis, right hip; E87.1 Hypo-osmolality and hyponatremia; I07.1 Rheumatic tricuspid insufficiency; D73.2 Chronic congestive splenomegaly; K74.60 Unspecified cirrhosis of liver; E87.6 Hypokalemia; M25.451 Effusion, right hip; K80.20 Calculus of gallbladder without cholecystitis without obstruction; B18.2 Chronic viral hepatitis C; I10 Essential (primary) hypertension; F15.10 Other stimulant abuse, uncomplicated; Z79.4 Long term (current) use of insulin; F17.210 Nicotine dependence, cigarettes, uncomplicated; Z91.14 Patient's other noncompliance with medication regimen; F19.10 Other psychoactive substance abuse, uncomplicated
CPT/HCPCS: 20610; 36415; 36416; 36569; 74177; 76705; 77002; 80048; 80053; 80074; 80306; 82550; 82728; 82945; 83605; 84157; 84560; 85025; 85060; 85652; 86140; 87040; 87070; 87077; 87102; 87149; 87186; 87205; 87206; 87389; 87521; 87522; 87902; 89051; 89060; 93005; 93010; 93306; 96361; 96374; 96376; J2270; A4216; C1751; G8978-GP-CN; G8979-GP-CJ; J0360; J0696; J1644; J1650; J1815; J1885; J2001; J2405; J2704; J3010; J3370; J7050

== ENCOUNTER 2017-07-10 15:38 | Outpatient (CLI) | payer SELFPAY ==
--- NOTE | 2017-07-10 17:09 | HP ---
DATE OF ADMISSION: 07/10/2017 HISTORY OF PRESENT ILLNESS: Ms. Obdulia Urban is a 57-year-old who presents to the [facility] Center for evaluation of a wound of the right hip subsequent to surgery for septic right hip by Dr. Michael Doan on 06/24/2017. Negative pressure therapy was initiated subsequent to surgery during the patient's h ospital stay, and upon discharge from [facility], the patient was referred to the Wound Center for assistance with dressing changes of the wound VAC. Also, during the patient's h ospital stay, Ms. Urban was seen in consultation by Dr. Severino Morales of Infectious Diseases. The patient is receiving IV antibiotics under the direction of Infectious Diseases until 08/03/2017. PAST MEDICAL HISTORY: 1. Diabetes mellitus. 2. Hypertension. 3. Hepatitis C. 4. Cirrhosis. PAST SURGICAL HISTORY: 1. x3. 2. Surgery for septic right hip by Dr. Doan on 06/24/2017 as per HPI. MEDICATIONS: The patient does not have a list of her medications with her today. ALLERGIES: No known diagnosed allergies. SOCIAL HISTORY: Significant for tobacco use of up to 1 pack of cigarettes per day from age 34 to the present time. The patient admits to the heavy consumption of beer in the past. She states that she stopped consuming alcohol "a long time ago." FAMILY HISTORY: Significant for diabetes mellitus. The patient states that her mother and sister we re both diagnosed with diabetes mellitus. Family history is negative for coronary artery disease. PHYSICAL EXAMINATION: VITAL SIGNS: Temperature 97.4, pulse 81, respirations 19, blood pressure 157/74. GENERAL: A 57-year-old female lying on stretcher in examination room in no acute distress. HEENT: Normocephalic, atraumatic. NECK: No nuchal rigidity. CHEST: Clear to auscultation. CARDIAC: Regular rate and rhythm. ABDOMEN: Soft. EXTREMITIES: A large wound of the right hip is present. Granulation tissue is present within the wo und margins. No purulent drainage is associated with the wound. No erythema of the skin surrounding the wound is present. No maceration of the skin of the periwound is noted. Undermining at the 6 o' clock position is approximately 5-6 cm in length. The depth of the wound is approximately 3 cm. ASSESSMENT AND PLAN: 1. Right hip wound as described above. Negative pressure therapy will be continued with dressing ch anges of the wound VAC 2 times per week here in the Wound Center. The patient will be seen by Orthop edic Surgery in approximately 1 week. I will see Ms. Urban again in two weeks. As stated above, t he patient is receiving IV antibiotics as per Dr. Severino Morales of Infectious Diseases. 2. Diabetes mellitus. Accu-Cheks will be obtained at the time of the patient's clinic visits. The patient has been told that for optimal wound healing, her blood glucoses should remain below 150. 3. Hypertension. 4. Hepatitis C. 5. Cirrhosis.
== END 2017-07-10 15:39 | disposition home or self-care (01) ==
LOC: WCC 15:38
PROVIDERS: ATTEND Orthopaedic Surgery
DX: T81.89XD Other complications of procedures, not elsewhere classified, subsequent encounter (principal); S71.001D Unspecified open wound, right hip, subsequent encounter; E11.9 Type 2 diabetes mellitus without complications; I10 Essential (primary) hypertension; K74.60 Unspecified cirrhosis of liver; B19.20 Unspecified viral hepatitis C without hepatic coma
CPT/HCPCS: 97605; 99203; G0463

== ENCOUNTER 2017-07-13 14:35 | Outpatient (CLI) | payer OTHER ==
[~2017-07-13 14:35] MED LIST changes: -ISOVUE-370 76%-LOCM 1 ML ONE; +Sodium Chloride 0.9% 15 ML NEB ONE
== END 2017-07-13 14:36 | disposition home or self-care (01) ==
LOC: WCC 14:35
PROVIDERS: ATTEND Family Medicine
DX: T81.89XD Other complications of procedures, not elsewhere classified, subsequent encounter (principal)
CPT/HCPCS: 36416; 97606; A4218

== ENCOUNTER 2017-07-17 10:08 | Outpatient (CLI) | payer OTHER ==
[2017-07-17] MEDS ORDERED: Sodium Chloride 0.9% 15 ML NEB ONE (14:25)
[2017-07-17] MEDS ORDERED: Lidocaine 4% Topical Sol 50 ML BOT ONE (14:25)
== END 2017-07-17 10:09 | disposition home or self-care (01) ==
LOC: WCC 10:08
PROVIDERS: ATTEND Family Medicine
DX: T81.89XD Other complications of procedures, not elsewhere classified, subsequent encounter (principal)
CPT/HCPCS: 36416; 97605; A4218; J2001

== ENCOUNTER 2017-07-20 14:57 | Outpatient (CLI) | payer OTHER ==
[2017-07-21] MEDS ORDERED: Sodium Chloride 0.9% 15 ML NEB ONE (14:35)
== END 2017-07-20 14:58 | disposition home or self-care (01) ==
LOC: WCC 14:57
PROVIDERS: ATTEND Family Medicine
DX: S71.001D Unspecified open wound, right hip, subsequent encounter (principal); Z91.14 Patient's other noncompliance with medication regimen; M25.551 Pain in right hip; M25.451 Effusion, right hip
CPT/HCPCS: 36416; 97605

== ENCOUNTER 2017-07-24 11:18 | Outpatient (CLI) | payer OTHER ==
[~2017-07-24 11:18] MED LIST changes: +Lidocaine 4% Topical Sol 50 ML BOT ONE
--- NOTE | 2017-07-25 08:40 | PRG ---
DATE OF SERVICE: 07/24/2017 HISTORY: Ms. Obdulia Urban is a 57-year-old who presents to the Wound Center for evaluation of a wou nd of the right hip subsequent to surgery for septic right hip by Dr. Michael Doan on 06/24/2017. Ne gative pressure therapy was initiated subsequent to surgery during the patient's hospital stay and up on discharge from [facility], the patient was referred to the Wound Center for assistance with dressing changes of the wound VAC. Also, during the patient's hospital stay, Ms. Willy wright was seen in consultation by Dr. Severino Morales of Infectious Diseases. The patient is scheduled to receive IV antibiotics under the direction of Infectious Diseases until 08/03/2017. PHYSICAL EXAMINATION: VITAL SIGNS: Temperature 97.4, pulse 71, respirations 18, blood pressure 194/81. Accu-Chek 187. EXTREMITIES: A large wound of the right hip is present. Granulation tissue is present within the wo und margins. No purulent drainage is associated with the wound. No erythema of the skin surrounding the wound is present. No maceration of the skin of the periwound is noted. The depth of the wound is approximately 3.5 cm. Undermining at the 6 o'clock position is approximately 6.5 cm in length. ASSESSMENT AND PLAN: 1. Right hip wound as described above. Negative pressure therapy will be continued with dressing ch anges of the wound VAC 2 times per week here in the Wound Center. I will see Ms. Urban again in tw o weeks. As stated above, the patient is receiving IV antibiotics as per Dr. Severino Morales of Infect ious Diseases. 2. Diabetes mellitus. The patient's Accu-Chek in clinic today is 187. The patient has been told th at for optimal wound healing, her blood glucoses should remain below 150. 3. Hypertension. 4. Hepatitis C. 5. Cirrhosis.
== END 2017-07-24 11:19 | disposition home or self-care (01) ==
LOC: WCC 11:18
PROVIDERS: ATTEND Family Medicine
DX: T81.89XD Other complications of procedures, not elsewhere classified, subsequent encounter (principal); E11.9 Type 2 diabetes mellitus without complications; I10 Essential (primary) hypertension; B19.20 Unspecified viral hepatitis C without hepatic coma; K74.60 Unspecified cirrhosis of liver
CPT/HCPCS: 36416; 97606; A4218; J2001

== ENCOUNTER 2017-07-27 14:30 | Outpatient (CLI) | payer OTHER ==
[~2017-07-27 14:30] MED LIST changes: -Lidocaine 4% Topical Sol 50 ML BOT ONE
== END 2017-07-27 14:31 | disposition home or self-care (01) ==
LOC: WCC 14:30
PROVIDERS: ATTEND Family Medicine
DX: T81.89XD Other complications of procedures, not elsewhere classified, subsequent encounter (principal)
CPT/HCPCS: 36416; 97605; A4218

== ENCOUNTER 2017-07-31 10:57 | Outpatient (CLI) | payer OTHER | END 2017-07-31 10:58 | disposition home or self-care (01) | LOC: WCC 10:57 | PROVIDERS: ATTEND Family Medicine | DX: T81.89XD Other complications of procedures, not elsewhere classified, subsequent encounter (principal) | CPT/HCPCS: 97605 ==

== ENCOUNTER 2017-08-01 10:57 | Outpatient (CLI) | payer OTHER | END 2017-08-01 10:58 | disposition home or self-care (01) | LOC: WCC 10:57 | PROVIDERS: ATTEND Family Medicine | DX: T81.89XD Other complications of procedures, not elsewhere classified, subsequent encounter (principal) | CPT/HCPCS: 99211; G0463 ==

== ENCOUNTER 2017-08-03 11:37 | Outpatient (CLI) | payer OTHER ==
[2017-08-03] MEDS ORDERED: Sodium Chloride 0.9% 15 ML NEB ONE (16:16)
== END 2017-08-03 11:38 | disposition home or self-care (01) ==
LOC: WCC 11:37
PROVIDERS: ATTEND Family Medicine
DX: T81.89XD Other complications of procedures, not elsewhere classified, subsequent encounter (principal)
CPT/HCPCS: 97605; A4218

== ENCOUNTER 2017-08-07 11:17 | Outpatient (CLI) | payer OTHER ==
--- NOTE | 2017-08-07 12:24 | PRG ---
DATE OF SERVICE: 08/07/2017 HISTORY: Ms. Obdulia Jama is a 57-year-old who presents to the Wound Center for evaluation of a wound of the right hip subsequent to surgery for septic right hip by Dr. Michael Doan on 06/24/2017. Negativ e pressure therapy was initiated subsequent to surgery during the patient's hospital stay and upon di scharge from [facility], the patient was referred to the Wound Center for assi stance with dressing changes of the wound VAC. Also, during the patient's hospital stay, Ms. Urban was seen in consultation by Dr. Severino Morales of Infectious Diseases. The patient has received IV a ntibiotics under the direction of Infectious Diseases. PHYSICAL EXAMINATION: VITAL SIGNS: Temperature 97.7, pulse 79, respirations 18, blood pressure 163/76. Accu-Chek 133. EXTREMITIES: A large wound of the right hip is present. Granulation tissue is present within the wo und margins. No purulent drainage is associated with the wound. No erythema of the skin surrounding the wound is present. No maceration of the skin of the periwound is noted. Undermining at the 6 o' clock position at the time of the patient's visit on 07/24/2017 was approximately 6.5 cm in length. ASSESSMENT AND PLAN: 1. Right hip wound as described above. Negative pressure therapy will be continued with dressing ch anges of the wound VAC 2 times per week here in the Wound Center. As stated above, the patient has r eceived IV antibiotics as per Dr. Severino Morales of Infectious Diseases. The patient states she has a n appointment with Dr. Doan on 08/21/2017. I will see Ms. Urban again in approximately 2 weeks. 2. Diabetes mellitus. The patient's Accu-Chek in clinic today is 133. The patient has been reminde d that for optimal wound healing, her blood glucoses should remain below 150. 3. Hypertension. 4. Hepatitis C. 5. Cirrhosis.
[2017-08-07] MEDS ORDERED: Sodium Chloride 0.9% 15 ML NEB ONE (19:52)
== END 2017-08-07 11:18 | disposition home or self-care (01) ==
LOC: WCC 11:17
PROVIDERS: ATTEND Family Medicine
DX: T81.89XD Other complications of procedures, not elsewhere classified, subsequent encounter (principal); E11.9 Type 2 diabetes mellitus without complications; I10 Essential (primary) hypertension; B19.20 Unspecified viral hepatitis C without hepatic coma; K74.60 Unspecified cirrhosis of liver
CPT/HCPCS: 36416; A4218

== ENCOUNTER 2017-08-10 13:41 | Outpatient (CLI) | payer OTHER ==
[2017-08-11] MEDS ORDERED: Sodium Chloride 0.9% 15 ML NEB ONE (12:34)
[2017-08-11] MEDS ORDERED: Lidocaine 4% Topical Sol 50 ML BOT ONE (12:34)
== END 2017-08-10 13:42 | disposition home or self-care (01) ==
LOC: WCC 13:41
PROVIDERS: ATTEND Family Medicine
DX: T81.89XA Other complications of procedures, not elsewhere classified, initial encounter (principal)
CPT/HCPCS: 36416; 97606

== ENCOUNTER 2017-08-14 11:37 | Outpatient (CLI) | payer OTHER | END 2017-08-14 11:38 | disposition home or self-care (01) | LOC: WCC 11:37 | PROVIDERS: ATTEND Family Medicine | DX: T81.89XD Other complications of procedures, not elsewhere classified, subsequent encounter (principal) | CPT/HCPCS: 97605 ==

== ENCOUNTER 2017-08-17 12:36 | Outpatient (CLI) | payer OTHER | END 2017-08-17 12:37 | disposition home or self-care (01) | LOC: WCC 12:36 | PROVIDERS: ATTEND Family Medicine | DX: T81.89XD Other complications of procedures, not elsewhere classified, subsequent encounter (principal) | CPT/HCPCS: 97605; A4218 ==

== ENCOUNTER 2017-08-21 14:25 | Outpatient (CLI) | payer OTHER | END 2017-08-21 14:26 | disposition home or self-care (01) | LOC: WCC 14:25 | PROVIDERS: ATTEND Family Medicine | DX: T81.89XD Other complications of procedures, not elsewhere classified, subsequent encounter (principal) | CPT/HCPCS: 36416 ==

== ENCOUNTER 2017-08-24 14:28 | Outpatient (CLI) | payer OTHER ==
[2017-08-24] MEDS ORDERED: Sodium Chloride 0.9% 15 ML NEB ONE (21:39)
[2017-08-24] MEDS ORDERED: Lidocaine 4% Topical Sol 50 ML BOT ONE (21:39)
== END 2017-08-24 14:29 | disposition home or self-care (01) ==
LOC: WCC 14:28
PROVIDERS: ATTEND Family Medicine
DX: T81.89XD Other complications of procedures, not elsewhere classified, subsequent encounter (principal)
CPT/HCPCS: 36416; 97605; A4218; J2001

== ENCOUNTER 2017-08-28 10:03 | Outpatient (CLI) | payer OTHER ==
[2017-08-28] MEDS ORDERED: Lidocaine 4% Topical Sol 50 ML BOT ONE (18:56)
[2017-08-28] MEDS ORDERED: Sodium Chloride 0.9% 15 ML NEB ONE (18:56)
== END 2017-08-28 10:04 | disposition home or self-care (01) ==
LOC: WCC 10:03
PROVIDERS: ATTEND Family Medicine
DX: T81.89XD Other complications of procedures, not elsewhere classified, subsequent encounter (principal)
CPT/HCPCS: 36416; 97605; A4218; J2001

== ENCOUNTER 2017-08-31 14:45 | Outpatient (CLI) | payer OTHER | END 2017-08-31 14:46 | disposition home or self-care (01) | LOC: WCC 14:45 | PROVIDERS: ATTEND Family Medicine | DX: T81.89XD Other complications of procedures, not elsewhere classified, subsequent encounter (principal) | CPT/HCPCS: 36416; 97605; A4218 ==

== ENCOUNTER 2017-09-04 13:11 | Outpatient (CLI) | payer OTHER ==
--- NOTE | 2017-09-04 13:55 | PRG ---
DATE OF SERVICE: 09/04/2017 HISTORY: Ms. Obdulia Urban is a very pleasant 57-year-old who presents to the Wound Center for ev aluation of a wound of the right hip subsequent to surgery for septic right hip by Dr. Michael kang 06/24/2017. Negative pressure therapy was initiated subsequent to surgery during the patient's hos pital stay and upon discharge from [facility], the patient was referred to the Wound Center for assistance with dressing changes of the wound VAC. Also, during the patient's hosp ital stay, Ms. Urban was seen in consultation by Dr. Severino Morales of Infectious Diseases. The pat ient completed a course of IV antibiotics under the direction of Infectious Diseases. PHYSICAL EXAMINATION: VITAL SIGNS: Temperature 98.2, pulse 64, respirations 19, blood pressure 145/79, Accu-Chek 76. EXTREMITIES: A wound of the right hip is still present. Granulation tissue is present within the wo und margins. No purulent drainage is associated with the wound. No erythema of the skin surrounding the wound is present. No maceration of the skin of the periwound is noted. A tunnel at the 6 o'jeannette ck position is approximately 2.6 cm in length. ASSESSMENT AND PLAN: 1. Right hip wound as described above. Negative pressure therapy will be continued with dressing ch anges of the wound VAC 2 times per week here in the Wound Center. As stated above, the patient has c ompleted a course of IV antibiotics as per Dr. Severino Morales of Infectious Diseases. I will see Ms. Urban again in two weeks. 2. Diabetes mellitus. The patient's Accu-Chek in clinic today is 76. The patient has been reminded that for optimal wound healing, her blood glucoses should remain below 150. 3. Hypertension. 4. Hepatitis C. 5. Cirrhosis.
[2017-09-04] MEDS ORDERED: Sodium Chloride 0.9% 15 ML NEB ONE (14:57)
== END 2017-09-04 13:12 | disposition home or self-care (01) ==
LOC: WCC 13:11
PROVIDERS: ATTEND Family Medicine
DX: E11.622 Type 2 diabetes mellitus with other skin ulcer (principal); L98.499 Non-pressure chronic ulcer of skin of other sites with unspecified severity; B19.20 Unspecified viral hepatitis C without hepatic coma; K74.60 Unspecified cirrhosis of liver; I10 Essential (primary) hypertension
CPT/HCPCS: 36416; A4218

== ENCOUNTER 2017-09-07 15:31 | Outpatient (CLI) | payer OTHER ==
[2017-09-07] MEDS ORDERED: Sodium Chloride 0.9% 15 ML NEB ONE (16:55)
== END 2017-09-07 15:32 | disposition home or self-care (01) ==
LOC: WCC 15:31
PROVIDERS: ATTEND Family Medicine
DX: T81.89XD Other complications of procedures, not elsewhere classified, subsequent encounter (principal)
CPT/HCPCS: 36416; 97605; A4218

== ENCOUNTER 2017-09-11 14:30 | Outpatient (CLI) | payer OTHER | END 2017-09-11 14:31 | disposition home or self-care (01) | LOC: WCC 14:30 | PROVIDERS: ATTEND Family Medicine | DX: T81.89XD Other complications of procedures, not elsewhere classified, subsequent encounter (principal) | CPT/HCPCS: 36416; 97605 ==

== ENCOUNTER 2017-09-14 14:23 | Outpatient (CLI) | payer OTHER ==
[2017-09-14] MEDS ORDERED: Sodium Chloride 0.9% 15 ML NEB ONE (15:28)
== END 2017-09-14 14:24 | disposition home or self-care (01) ==
LOC: WCC 14:23
PROVIDERS: ATTEND Family Medicine
DX: T81.89XD Other complications of procedures, not elsewhere classified, subsequent encounter (principal)
CPT/HCPCS: 36416; 97605; A4218

== ENCOUNTER 2017-09-20 10:03 | Outpatient (CLI) | payer OTHER ==
[~2017-09-20 10:03] MED LIST changes: +Lidocaine 2% Jelly 5 ML TUBE ONE
--- NOTE | 2017-09-20 11:38 | PRG ---
DATE OF SERVICE: 09/20/2017 HISTORY: Ms. Obdulia Urban is a very pleasant 57-year-old who presents to the Wound Center for ev aluation of a wound of the right hip subsequent to surgery for septic right hip by Dr. Michael kang 06/24/2017. Negative pressure therapy was initiated subsequent to surgery during the patient's hos pital stay and upon discharge from [facility] the patient was referred to the Wound Center for assistance with dressing changes of the wound VAC. Also, during the patient's hospi taz stay, Ms. Urban was seen in consultation by Dr. Severino Morales of Infectious Diseases. The jannette ent has completed a course of IV antibiotics under the direction of Infectious Diseases. PHYSICAL EXAMINATION: VITAL SIGNS: Temperature 97.6, pulse 77, respirations 18, blood pressure 141/81. Accu-Chek 73. EXTREMITIES: A wound of the right hip is still present. Granulation tissue is present within the wo und margins. No purulent drainage is associated with the wound. No erythema of the skin surrounding the wound is present. No maceration of the skin of the periwound is noted. A tunnel at the 6 o'jeannette ck position is approximately 2 cm in length. The length of the tunnel at the time of the patient's v isit on 09/04/2017 was approximately 2.6 cm. ASSESSMENT AND PLAN: 1. Right hip wound as described above. Negative pressure therapy will be discontinued today. Dress ing changes of iodoform gauze 1/4 inch will be initiated. These dressing changes are to be performed on a daily basis after cleansing and irrigation. The patient's daughter will be assisting Ms. Anjali linder with her dressing changes. As stated above, the patient has completed a course of IV antibiotics as per Dr. Severino Morales of Infectious Diseases. I will see Ms. Urban again in one week. 2. Diabetes mellitus. The patient's Accu-Chek in clinic today is 73. The patient has been reminded that for optimal wound healing, her blood glucoses should remain below 150. 3. Hypertension. 4. Hepatitis C. 5. Cirrhosis.
== END 2017-09-20 10:04 | disposition home or self-care (01) ==
LOC: WCC 10:03
PROVIDERS: ATTEND Family Medicine
DX: T81.89XD Other complications of procedures, not elsewhere classified, subsequent encounter (principal); E11.622 Type 2 diabetes mellitus with other skin ulcer; L98.499 Non-pressure chronic ulcer of skin of other sites with unspecified severity; I10 Essential (primary) hypertension; B19.20 Unspecified viral hepatitis C without hepatic coma; K74.60 Unspecified cirrhosis of liver
CPT/HCPCS: 36416; 97602; A4218

== ENCOUNTER 2017-09-28 09:59 | Outpatient (CLI) | payer OTHER ==
--- NOTE | 2017-09-28 13:06 | PRG ---
DATE OF SERVICE: 09/28/2017 HISTORY: Ms. Obdulia Urban is a very pleasant 57-year-old who presents to the Wound Center for ev aluation of a wound of the right hip subsequent to surgery for septic right hip by Dr. Michael kang 06/24/2017. Negative pressure therapy was initiated subsequent to surgery during the patient's hos pital stay and upon discharge from [facility], the patient was referred to the Wound Center for assistance with dressing changes of the wound VAC. Also, during the patient's hosp ital stay, Ms. Urban was seen in consultation by Dr. Severino Morales of Infectious Diseases. The pat ient has completed a course of IV antibiotics under the direction of Infectious Diseases. PHYSICAL EXAMINATION: VITAL SIGNS: Temperature 97.9, pulse 78, respirations 17, blood pressure 189/85. Accu-Chek 66. EXTREMITIES: A wound of the right hip is still present. Granulation tissue is present within the wo und margins. No purulent drainage is associated with the wound. No erythema of the skin surrounding the wound is present. No maceration of the skin of the periwound is noted. No tunnel is associated with the wound on today's exam. ASSESSMENT AND PLAN: 1. Right hip wound as described above. Dressing changes of Medihoney and gauze are to be performed on a daily basis after cleansing and irrigation. The patient's daughter will continue to assist Ms. Urban with her dressing changes. As stated above, the patient has completed a course of IV antibio tics as per Dr. Severino Morales of Infectious Diseases. Also as stated above, there is no tunnel asso ciated with the wound on today's exam. A tunnel was associated with the wound at the time of the pat ient's visit on 09/20/2017. I will see Ms. Urban again in one week. 2. Diabetes mellitus. The patient's Accu-Chek in clinic today is 66. The patient has been reminded that for optimal wound healing, her blood glucoses should remain below 150. 3. Hypertension. 4. Hepatitis C. 5. Cirrhosis.
== END 2017-09-28 10:00 | disposition home or self-care (01) ==
LOC: WCC 09:59
PROVIDERS: ATTEND Family Medicine
DX: T81.89XD Other complications of procedures, not elsewhere classified, subsequent encounter (principal); E11.9 Type 2 diabetes mellitus without complications; I10 Essential (primary) hypertension; B19.20 Unspecified viral hepatitis C without hepatic coma; K74.60 Unspecified cirrhosis of liver
CPT/HCPCS: 36416; 97602

== ENCOUNTER 2020-07-21 20:49 | Inpatient (IN) | payer OTHER, SELFPAY ==
[2020-07-21] MEDS ORDERED: Dextrose 50% Abboject 50 ML SYRINGE ONE (20:54)
[2020-07-21] MEDS ORDERED: Dexamethasone 10 MG/ML VIAL ONE (21:21)
[2020-07-21] MEDS ORDERED: Acetaminophen 500 MG TAB ONE (21:21)
--- NOTE | 2020-07-21 21:32 | RAD ---
RADIOGRAPH CHEST 1 VIEW: Date: 07/21/20 Time: 9:01 p.m. HISTORY: 60-year-old female with fever. COVID-19 positive. COMPARISON: None available. FINDINGS: There are patchy nodular air space densities in the left lower lobe, and to a lesser degree left mid lung zone, and left perihilar region. Cardiomegaly. Nonspecific small mildly increased attenuation at right perihilar and right basilar region. No pneumothorax. IMPRESSION: 1. Left sided infiltrates, especially in left lower lung zone, probably representing pneumonia, possibly COVID-19 pneumonia. 2. Cardiomegaly. JN [] POS: JIN
[2020-07-21 21:38] LABS: #Lymphocytes 1.1 thou/uL (1.20-3.40); #Monocytes 0.5 thou/uL (0.11-0.59); #Neutrophils 4.4 thou/uL (1.40-6.50); %Basophils 0.3 % (0.0-1.0); %Eosinophils 0.2 % (0.0-10.0); %Lymphocytes 18.6 % (21.0-51.0); %Monocytes 7.8 % (0.0-10.0); Hemoglobin 13.7 g/dL (12.0-16.0); Mean Corpuscular HGB CONC 33.4 g/dL (32.0-36.0); Mean Corpuscular Hemoglobin 31.1 pg (27.0-31.0); Mean Corpuscular Volume 93.1 fL (78.0-98.0); Mean Platelet Volume 8.3 fL (7.4-10.4); Platelet Count 171 thou/uL (130-400); Red Blood Cell (RBC) Count 4.41 mill/uL (4.20-5.40)
[2020-07-21 22:02] LABS: ALT (SGPT) 21 U/L (8-55); AST (SGOT) 30 U/L (5-34); Albumin 4.2 g/dL (3.4-4.8); Alkaline Phosphatase 49 U/L (40-110); Anion Gap 18 mmol/L (10-20); BUN (Urea Nitrogen) 21 mg/dL (9.8-20.1); Bilirubin, Total 0.6 mg/dL (0.2-1.2); Calc. Creatinine Clearance 0 mL/min (70-130); Calcium 9.6 mg/dL (7.8-10.44); Carbon Dioxide 24 mmol/L (23-31); Chloride 97 mmol/L (98-107); Globulin 4.1 g/dL (2.4-3.5); Glucose 103 mg/dL (80-115); Potassium 5.5 mmol/L (3.5-5.1); Protein, Total 8.3 g/dL (5.8-8.1); Sodium 133 mmol/L (136-145)
--- NOTE | 2020-07-21 22:26 | PDOC.FPRHP ---
- History of Present Illness Chief Complaint: worsening SOB, labile blood sugar History of Present Illness: 60yoF presents to the ED for worsening symptoms of COVID 19. She was diagnosed at her PCP's office 07/16, symptoms started 07/13. She has been experiencing cough and worsening shortness of breath. She endorses back pain that is worsened with coughing, fever, chills, and myalgias. Her daughter was concerned about pneumonia and requested she present to the ED. Her doctor sent the paperwork for the outpatient MAB treatment, however she never received it. She has also had a difficult time controlling her blood glucose at home. She is taking Metformin and Glyburide. Daughter - Irene George [phone] (cell) ED Course: NS 1L, Tylenol 1g, Dex 10mg - Allergies/Adverse Reactions Allergies Allergy/AdvReac Type Severity Reaction Status Date / Time No Known Allergies Allergy Verified 06/22/17 23:21 - Home Medications Medication Instructions Recorded Confirmed Type metFORMIN HCl 1,000 mg PO BID-WM #60 tab 06/26/17 07/21/20 Rx glyBURIDE [Glyburide] 5 mg PO DAILY #30 tablet 06/30/17 07/21/20 Rx Hydrochlorothiazide 25 mg PO DAILY 07/21/20 07/21/20 History Lisinopril 40 mg PO DAILY 07/21/20 07/21/20 History - History PMHx: DM II HTN H/o Hep C PSHx: x3 FHx: Father, , stroke 70s. Mother, , emphysema, 70s. Sister, diabetes, Social: Former smoker, quit <5 years ago. Denies current alcohol or illicit drug use. Former use of speed. - Review of Systems General: reports: fever/chills, weight/appetite/sleep changes, fatigue Eyes: denies: eye pain, vision changes ENT: denies: nasal congestion, rhinorrhea Respiratory: reports: cough, congestion, shortness of breath Cardiovascular: denies: chest pain, palpitation, edema, paroxysmal nocturnal dyspnea, orthopnea Gastrointestinal: denies: nausea, vomiting, diarrhea, constipation, abdominal pain Genitourinary: denies: incontinence, dysuria, polyuria Skin: denies: rashes, lesions Musculoskeletal: reports: pain. denies: tenderness Neurological: reports: weakness. denies: numbness, syncope, seizure Psychological: reports: anxiety - Vital signs BP: 171/112 HR: 103 RR: 18 Tmax: 102.5F Pox: 97% on 2L Wt: 80kg - Physical Exam Constitutional: NAD, awake, alert and oriented, well developed HEENT: normocephalic and atraumatic, PERRLA, EOMI, conjunctiva clear, grossly normal vision, grossly normal hearing, MMM Neck: supple, trachea midline Heart: RRR, normal S1/S2, no murmurs/rubs/gallops Lungs: no respiratory distress, good air movement, no wheezing -Lungs: Coarse breath sounds bilaterally, inspiratory squeak heard in RLL, rhonchi present. Abdomen: soft, non-tender Musculoskeletal: normal structure, normal tone Neurological: no focal deficit, CN II-XII intact Skin: no rash/lesions, good turgor, capillary refill <2 seconds Heme/Lymphatic: no unusual bruising or bleeding, no purpura Psychiatric: normal mood and affect, good judgment and insight -Psychiatric: Anxious about disease process FMR H&P: Results - Labs Result Diagrams: 07/21/20 21:24 07/21/20 21:24 Lab results: WBC 6.0 thou/uL (4.8-10.8) 07/21/20 21:24 Hgb 13.7 g/dL (12.0-16.0) 07/21/20 21:24 Hct 41.1 % (36.0-47.0) 07/21/20 21:24 MCV 93.1 fL (78.0-98.0) 07/21/20 21:24 Plt Count 171 thou/uL (130-400) 07/21/20 21:24 Neutrophils % 73.0 % (42.0-75.0) 07/21/20 21:24 ESR Westergren 64 mm/hr (Less than 30) H 07/21/20 21:25 Sodium 133 mmol/L (136-145) L 07/21/20 21:24 Potassium 5.5 mmol/L (3.5-5.1) H 07/21/20 21:24 Chloride 97 mmol/L (98-107) L 07/21/20 21:24 Carbon Dioxide 24 mmol/L (23-31) 07/21/20 21:24 BUN 21 mg/dL (9.8-20.1) H 07/21/20 21:24 Creatinine 0.96 mg/dL (0.6-1.1) 07/21/20 21:24 Glucose 103 mg/dL (80-115) 07/21/20 21:24 Lactic Acid 1.3 mmol/L (0.5-2.2) 07/21/20 21:24 Calcium 9.6 mg/dL (7.8-10.44) 07/21/20 21:24 Total Bilirubin 0.6 mg/dL (0.2-1.2) 07/21/20 21:24 AST 30 U/L (5-34) 07/21/20 21:24 ALT 21 U/L (8-55) 07/21/20 21:24 Alkaline Phosphatase 49 U/L (40-110) 07/21/20 21:24 C-Reactive Protein 5.59 mg/dL (= or < 0.5) H 07/21/20 21:24 Serum Total Protein 8.3 g/dL (5.8-8.1) H 07/21/20 21:24 Albumin 4.2 g/dL (3.4-4.8) 07/21/20 21:24 - EKG Interpretation EKG: Sinus tachycardia with a rate of 110. - Radiology Interpretation Chest x-ray Status: report reviewed by me (IMPRESSION: 1. Left sided infiltrates, especially in left lower lung zone, probably representing pneumonia, possibly COVID-19 pneumonia. 2. Cardiomegaly.) FMR H&P: A/P - Problem List (1) Pneumonia due to COVID-19 virus Current Visit: Yes Status: Acute Code(s): U07.1 - COVID-19; J12.82 - PNEUMONIA DUE TO CORONAVIRUS DISEASE 2018 (2) Diabetes type 2, controlled Current Visit: No Status: Chronic Code(s): E11.9 - TYPE 2 DIABETES MELLITUS WITHOUT COMPLICATIONS (3) Hypertension Current Visit: No Status: Chronic Code(s): I10 - ESSENTIAL (PRIMARY) HYPERTENSION (4) Hepatitis C Current Visit: No Status: Chronic Code(s): B19.20 - UNSPECIFIED VIRAL HEPATITIS C WITHOUT HEPATIC COMA Qualifiers: Viral hepatitis chronicity: chronic Hepatic coma status: without hepatic coma Qualified Code(s): B18.2 - Chronic viral hepatitis C (5) Liver cirrhosis Current Visit: No Status: Chronic Code(s): K74.60 - UNSPECIFIED CIRRHOSIS OF LIVER Qualifiers: Ascites presence: without ascites Comment: may be due to hepatitis C and her alcohol abuse history - Plan Pneumonia 2/2 COVID 19 - Initially patient was unable to speak in complete sentences d/t shortness of breath. This significantly improved with O2 via NC. - Satting well on 2L NC. - Continue steroids - Dulera inhaler - Out of window for Remdesivir - CRP, LDH, Ferritin, D-dimer pending for baseline HTN - Continue home meds DM II - D/c glyburide - Continue metformin - will cover with SSI insulin - hypoglycemia protocol Cirrhosis, h/o Hep C - not mentioned by patient, discovered on chart review - Will clarify tomorrow if has been treated or not. Dispo: Admit to medical floor for management of COVID symptoms. ELOS > 48 hours. Code: Full VTE: Lovenox PCP: CECILIA Gupta
[2020-07-21] MEDS ORDERED: Ondansetron ODT 4 MG TAB PO PRN (23:00)
[2020-07-21] MEDS ORDERED: Acetaminophen 325 MG TAB PO PRN (23:00)
[2020-07-21] MEDS ORDERED: Dextrose 5% in Water 1,000 ML IV PRN (23:00)
[2020-07-21] MEDS ORDERED: Dextrose 50% Abboject 50 ML SYRINGE SLOW IVP PRN (23:00)
[2020-07-21] MEDS ORDERED: Calcium Carbonate 500 MG ChewTAB PO PRN (23:00)
[2020-07-21] MEDS: Lactated Ringer's 1,000 ML IV SCH (23:30)
[2020-07-21 23:49] VITALS: BMI 31.2
[2020-07-22] MEDS ORDERED: HumaLOG 300 UNITS/3 ML VIAL SC PRN (02:47)
[2020-07-22] MEDS: Mometasone 200 MCG/Formoterol 5 MCG 120 PUFF INHALER INH SCH ×2 (06:30→18:01)
[2020-07-22] MEDS: HumaLOG 300 UNITS/3 ML VIAL SC PRN ×3 (06:35→16:44)
--- NOTE | 2020-07-22 06:45 | PDOC.FM ---
- Subjective Subjective: No acute overnight events. SOB improved with 2LNC. No headache, chest pain, hypoglycemic symptoms. Struggling with fluctuating blood sugar prior to admission. Insulin naive. Denies problems with appetite. Requests updates to daughter Irene. - Objective Vital Signs & Weight: Vital Signs (12 hours) Temp Pulse Resp BP Pulse Ox 07/22/20 04:00 76 18 133/84 98 07/22/20 02:47 97.6 F 75 20 125/77 97 Weight Weight 80 kg Result Diagrams: 07/22/20 06:48 07/22/20 06:48 Phys Exam - Physical Examination Constitutional: NAD HEENT: moist MMs Neck: supple Respiratory: no rales decreased breath sounds bilaterally Cardiovascular: RRR, no significant murmur Gastrointestinal: soft, non-tender, no distention, positive bowel sounds Musculoskeletal: no edema, pulses present Neurological: non-focal, moves all 4 limbs Psychiatric: normal affect, A&O x 3 Skin: cap refill <2 seconds Dx/Plan - Plan Plan: Pneumonia 2/2 COVID 19 - Initially patient was unable to speak in complete sentences d/t shortness of breath. This significantly improved with O2 via NC. - Satting well on 2L NC. - Continue steroids - Dulera inhaler - Out of window for Remdesivir HTN - Continue home meds DM II Elevated this AM, likely 2/2 steroids, infection. Fluctuating blood sugar at home (30s-190s) prompted clinic visit resulting in COVID dx on 07/16. - D/c glyburide - Continue metformin - will cover with SSI insulin, may need adjustment with addition of steroids; insulin naive - hypoglycemia protocol Hx of cirrhosis, hepatitis C Noted on chart review. To be verified with patient. Unclear whether treated or not. Dispo: Admit to medical floor for management of COVID symptoms. ELOS > 48 hours. Code: Full VTE: Lovenox PCP: CECILIA Gupta Addendum - Attending - Attending Attestation Date/Time: 07/22/20 [id number] I personally evaluated the patient and discussed the management with Dr. Blue. I agree with the History, Examination, Assessment and Plan documented above with any addition or exceptions noted below. Patient stable. Continue steroids and symptomatic care for COVID. Glycemic control difficult, will add basal Lantus while she is on steroids. Continue to monitor glycemic control. Will clarify her outpatient cirrhosis diagnosis and treatment regimen. Wean O2 as tolerated.
[2020-07-22] MEDS: Hydrochlorothiazide 25 MG TAB PO SCH (07:38)
[2020-07-22] MEDS: metFORMIN 500 MG TAB PO SCH ×2 (07:38→16:43)
[2020-07-22] MEDS: Lisinopril 20 MG TAB PO SCH (07:38)
[2020-07-22] MEDS: Dexamethasone 4 mg/ml Vial SLOW IVP SCH (07:38)
[2020-07-22] MEDS: Enoxaparin Sodium 40 MG/0.4 ML SYRINGE SC SCH (07:39)
[2020-07-22 07:50] LABS: #Lymphocytes 0.8 thou/uL (1.20-3.40); #Monocytes 0.2 thou/uL (0.11-0.59); %Basophils 0.6 % (0.0-1.0); %Eosinophils 0.6 % (0.0-10.0); %Lymphocytes 19.6 % (21.0-51.0); %Neutrophils 74.1 % (42.0-75.0); Hemoglobin 12.9 g/dL (12.0-16.0); Mean Corpuscular HGB CONC 32.4 g/dL (32.0-36.0); Mean Corpuscular Hemoglobin 30.6 pg (27.0-31.0); Mean Corpuscular Volume 94.5 fL (78.0-98.0); Mean Platelet Volume 8.7 fL (7.4-10.4); Platelet Count 166 thou/uL (130-400); RBC Distribution Width 12.1 % (11.5-14.5); Red Blood Cell (RBC) Count 4.22 mill/uL (4.20-5.40)
[2020-07-22 08:01] LABS: Anion Gap 16 mmol/L (10-20); BUN (Urea Nitrogen) 22 mg/dL (9.8-20.1); Calc. Creatinine Clearance 88 mL/min (70-130); Calcium 8.8 mg/dL (7.8-10.44); Carbon Dioxide 20 mmol/L (23-31); Chloride 100 mmol/L (98-107); Glucose 399 mg/dL (80-115); Potassium 4.5 mmol/L (3.5-5.1); Sodium 131 mmol/L (136-145)
[2020-07-22] MEDS: Lactated Ringer's 1,000 ML IV SCH (09:00)
[2020-07-22] MEDS ORDERED: Insulin Glargine 10 UNITS in Pre-Filled Syringe 1 EACH SC SCH (10:45)
[2020-07-22] MEDS: Melatonin 3 MG TAB PO SCH (21:14)
[2020-07-23] MEDS ORDERED: Benzonatate 100 MG CAP PO PRN (03:01)
[2020-07-23] MEDS: HumaLOG 300 UNITS/3 ML VIAL SC PRN ×3 (05:55→16:33)
[2020-07-23] MEDS: Mometasone 200 MCG/Formoterol 5 MCG 120 PUFF INHALER INH SCH (05:55)
--- NOTE | 2020-07-23 07:16 | PDOC.FM ---
- Subjective Subjective: No acute overnight events. Reports she is feeling worse, more anxious this AM. Increased coughing, endorses MSK back pain from laying in bed, frequent coughing. - Objective Vital Signs & Weight: Vital Signs (12 hours) Temp Pulse Resp BP Pulse Ox 07/23/20 03:13 150/86 H 07/23/20 03:00 98.6 F 88 22 H 96 07/22/20 20:00 95 Weight Weight 80 kg I&O: 07/22/20 07/23/20 07/24/20 06:59 06:59 06:59 Intake Total 1000 Balance 1000 Result Diagrams: 07/23/20 09:09 07/23/20 09:09 Phys Exam - Physical Examination Constitutional: NAD HEENT: moist MMs, sclera anicteric Neck: supple Respiratory: no rales decreased breath sounds bilaterally Cardiovascular: RRR, no significant murmur Gastrointestinal: soft, non-tender, no distention Musculoskeletal: no edema, pulses present Neurological: non-focal, moves all 4 limbs Psychiatric: A&O x 3 Deviation from normal: anxious affect Skin: cap refill <2 seconds Dx/Plan - Plan Plan: Pneumonia 2/2 COVID 19 - Initially patient was unable to speak in complete sentences d/t shortness of breath. This significantly improved with O2 via NC. - Satting well on 2L NC. - Continue steroids - Dulera inhaler - Out of window for Remdesivir HTN - Continue home meds DM II Elevated this AM, likely 2/2 steroids, infection. Fluctuating blood sugar at home (30s-190s) prompted clinic visit resulting in COVID dx on 07/16. - D/c glyburide - Continue metformin - started lantus yesterday and will titrate to meet needs, continue mild SSI, insulin naive - hypoglycemia protocol Hx of cirrhosis, hepatitis C s/p hepatitis C tx with Dr. Morales per patient. Endorses hx cirrhosis. - not on any medications for this at present Dispo: Admit to medical floor for management of COVID symptoms. ELOS > 48 hours. Code: Full VTE: Lovenox PCP: CECILIA Gupta Addendum - Attending - Attending Attestation Date/Time: 07/23/20 4904 I personally evaluated the patient and discussed the management with Dr. Blue. I agree with the History, Examination, Assessment and Plan documented above with any addition or exceptions noted below. Patient stable but has anxiety about her COVID illness. Questions and concerns addressed. Continue usual COVID care. Monitor blood sugars while on insulin and steroid therapy.
[2020-07-23] MEDS: Lisinopril 20 MG TAB PO SCH (08:58)
[2020-07-23] MEDS: Hydrochlorothiazide 25 MG TAB PO SCH (08:58)
[2020-07-23] MEDS: Enoxaparin Sodium 40 MG/0.4 ML SYRINGE SC SCH (08:58)
[2020-07-23] MEDS: metFORMIN 500 MG TAB PO SCH ×2 (08:58→16:10)
[2020-07-23] MEDS: Dexamethasone 4 mg/ml Vial SLOW IVP SCH (08:59)
[2020-07-23] MEDS: Insulin Glargine 15 UNITS in Pre-Filled Syringe 1 EACH SC SCH (08:59)
[2020-07-23] MEDS ORDERED: Insulin Glargine 10 UNITS in Pre-Filled Syringe 1 EACH SC SCH (09:00)
[2020-07-23] MEDS ORDERED: Lidocaine 5% Patch TD PRN (09:01)
[2020-07-23 09:43] LABS: #Lymphocytes 1.2 thou/uL (1.20-3.40); #Monocytes 0.7 thou/uL (0.11-0.59); #Neutrophils 12.8 thou/uL (1.40-6.50); %Basophils 0.2 % (0.0-1.0); %Eosinophils 0.2 % (0.0-10.0); %Lymphocytes 7.9 % (21.0-51.0); %Monocytes 4.8 % (0.0-10.0); Hemoglobin 13.4 g/dL (12.0-16.0); Mean Corpuscular HGB CONC 32.2 g/dL (32.0-36.0); Mean Corpuscular Hemoglobin 30.2 pg (27.0-31.0); Mean Corpuscular Volume 93.8 fL (78.0-98.0); Mean Platelet Volume 8.4 fL (7.4-10.4); Platelet Count 221 thou/uL (130-400); Red Blood Cell (RBC) Count 4.43 mill/uL (4.20-5.40); White Blood Cell (WBC) Count 14.7 thou/uL (4.8-10.8)
[2020-07-23 10:00] LABS: Anion Gap 21 mmol/L (10-20); BUN (Urea Nitrogen) 20 mg/dL (9.8-20.1); Calc. Creatinine Clearance 80 mL/min (70-130); Carbon Dioxide 21 mmol/L (23-31); Chloride 100 mmol/L (98-107); Glucose 199 mg/dL (80-115); Potassium 3.9 mmol/L (3.5-5.1); Sodium 138 mmol/L (136-145)
[2020-07-23 10:54] LABS: Hemoglobin A1c 5.2 % (4.0-6.0)
[2020-07-23] MEDS: Melatonin 3 MG TAB PO SCH (20:20)
[2020-07-23] MEDS ORDERED: Lidocaine Patch Removal 1 EACH TOP SCH (21:00)
[2020-07-24] MEDS: Mometasone 200 MCG/Formoterol 5 MCG 120 PUFF INHALER INH SCH ×2 (01:50→05:43)
[2020-07-24 06:17] LABS: #Lymphocytes 0.9 thou/uL (1.20-3.40); #Monocytes 0.7 thou/uL (0.11-0.59); #Neutrophils 7.8 thou/uL (1.40-6.50); %Basophils 0.2 % (0.0-1.0); %Eosinophils 0.2 % (0.0-10.0); %Lymphocytes 9.7 % (21.0-51.0); %Monocytes 7.2 % (0.0-10.0); %Neutrophils 82.6 % (42.0-75.0); Hemoglobin 12.2 g/dL (12.0-16.0); Mean Corpuscular HGB CONC 34.2 g/dL (32.0-36.0); Mean Corpuscular Hemoglobin 31.5 pg (27.0-31.0); Mean Corpuscular Volume 91.9 fL (78.0-98.0); Mean Platelet Volume 8.2 fL (7.4-10.4); Platelet Count 210 thou/uL (130-400); RBC Distribution Width 11.8 % (11.5-14.5); Red Blood Cell (RBC) Count 3.87 mill/uL (4.20-5.40); White Blood Cell (WBC) Count 9.5 thou/uL (4.8-10.8)
[2020-07-24 06:38] LABS: Anion Gap 15 mmol/L (10-20); BUN (Urea Nitrogen) 21 mg/dL (9.8-20.1); Calc. Creatinine Clearance 98 mL/min (70-130); Calcium 8.8 mg/dL (7.8-10.44); Carbon Dioxide 24 mmol/L (23-31); Chloride 100 mmol/L (98-107); Glucose 169 mg/dL (80-115); Potassium 4.3 mmol/L (3.5-5.1); Sodium 135 mmol/L (136-145)
--- NOTE | 2020-07-24 07:19 | PDOC.FM ---
- Subjective Subjective: No acute overnight events. Breathing stable this AM. Has been ambulating frequently, using ICS to about 500. Feeling anxious about going home. - Objective Vital Signs & Weight: Vital Signs (12 hours) Temp Pulse Resp BP Pulse Ox 07/24/20 04:00 96 07/24/20 03:59 97.8 F 79 20 166/88 H 97 07/24/20 00:00 97.7 F 73 73 H 160/93 H 97 07/23/20 20:00 97.7 F 85 20 155/87 H 97 Weight Weight 80 kg I&O: 07/23/20 07/24/20 07/25/20 06:59 06:59 06:59 Intake Total 1000 Balance 1000 Result Diagrams: 07/24/20 05:49 07/24/20 05:49 Phys Exam - Physical Examination Constitutional: NAD HEENT: moist MMs Neck: supple Respiratory: no wheezing, no rales decreased breath sounds bilaterally Cardiovascular: RRR, no significant murmur Gastrointestinal: soft, non-tender, positive bowel sounds Musculoskeletal: no edema, pulses present Neurological: non-focal, moves all 4 limbs Psychiatric: A&O x 3 Deviation from normal: anxious Skin: cap refill <2 seconds Dx/Plan - Plan Plan: Pneumonia 2/2 COVID 19 Saturating well on 2LNC and comfortable, dyspneic on room air. O2 saturations have been stable since admission. - likely stable for DC if home O2 can be arranged, CM consulted - continue steroids - continue dulera HTN - Continue home meds DM II Elevated this AM, likely 2/2 steroids, infection. Fluctuating blood sugar at home (30s-190s) prompted clinic visit resulting in COVID dx on 07/16. - D/c glyburide - Continue metformin - started lantus yesterday and will titrate to meet needs, continue mild SSI, insulin naive - hypoglycemia protocol - given A1c 5.4%, plan to DC with metformin only & close f/u in clinic for blood sugar - has glucometer at home for self monitoring Hx of cirrhosis, hepatitis C s/p hepatitis C tx with Dr. Morales per patient. Endorses hx cirrhosis. - not on any medications for this at present Dispo: Admitted to medical floor. Likely DC to home if home O2 can be arranged. Code: Full VTE: Lovenox PCP: CECILIA Gupta Addendum - Attending - Attending Attestation Date/Time: 07/24/20 1211 I personally evaluated the patient and discussed the management with Dr. Blue. I agree with the History, Examination, Assessment and Plan documented above with any addition or exceptions noted below. Patient here with COVID associated AHRF on 2L by PR as well as labile blood sugar. She is doing well from resp standpoint, attempt to wean to 1L by PR. She needs good outpatient follow up given her diabetes, but A1c is actually not ter rible and likely she can be managed without insulin. Social factors ongoing that will likely complicate her discharge given her indigent formerly [facility] status.
[2020-07-24] MEDS: metFORMIN 500 MG TAB PO SCH ×2 (09:11→17:16)
[2020-07-24] MEDS: Lisinopril 20 MG TAB PO SCH (09:11)
[2020-07-24] MEDS: Hydrochlorothiazide 25 MG TAB PO SCH (09:11)
[2020-07-24] MEDS: Dexamethasone 4 mg/ml Vial SLOW IVP SCH (09:11)
[2020-07-24] MEDS: Enoxaparin Sodium 40 MG/0.4 ML SYRINGE SC SCH (09:11)
[2020-07-24] MEDS: Insulin Glargine 15 UNITS in Pre-Filled Syringe 1 EACH SC SCH (09:11)
[2020-07-24] MEDS: HumaLOG 300 UNITS/3 ML VIAL SC PRN ×2 (12:06→17:17)
[2020-07-24 19:17] VITALS: BP 165/74; TEMP 97.6
--- NOTE | 2020-07-25 10:29 | EKG ---
Test Reason : SOB Blood Pressure : / mmHG Vent. Rate : 108 BPM Atrial Rate : 108 BPM P-R Int : 132 ms QRS Dur : 076 ms QT Int : 318 ms P-R-T Axes : 035 023 007 degrees QTc Int : 426 ms Sinus tachycardia with Premature atrial complexes with Abberant conduction Possible Left atrial enlargement Borderline ECG Confirmed by JENA MATHEW, LINDSAY Morton ([id number]), food expeditor TWIN VEGA ([id number]) on 07/25/2020 10:29:23 AM Referred By: Confirmed By:LINDSAY BELLA MD
== END 2020-07-24 17:43 | disposition home or self-care (01) | DRG 177 ==
LOC: ERS 20:49 → ERHOLD 21:59 → T4-B 07-22 02:27
PROVIDERS: ADMIT Family Medicine; ATTEND Family Medicine
DX: U07.1 COVID-19 (principal); J96.01 Acute respiratory failure with hypoxia; J12.82 Pneumonia due to coronavirus disease 2019; E11.9 Type 2 diabetes mellitus without complications; I10 Essential (primary) hypertension; F41.9 Anxiety disorder, unspecified; K74.60 Unspecified cirrhosis of liver; B18.2 Chronic viral hepatitis C; Z87.891 Personal history of nicotine dependence; Z79.84 Long term (current) use of oral hypoglycemic drugs; Z79.899 Other long term (current) drug therapy; Z82.3 Family history of stroke; Z83.3 Family history of diabetes mellitus
CPT/HCPCS: 36415; 36416; 71045; 80048; 80053; 82728; 83036; 83605; 83615; 84145; 85025; 85379; 85652; 86140; 87040; 93005; 96374; J1100; J1650; J1815

== ENCOUNTER 2021-05-26 10:53 | Outpatient (CLI) | payer OTHER | END 2021-05-26 10:54 | disposition home or self-care (01) | LOC: BICRAD 10:53 | PROVIDERS: ATTEND Student in an Organized Health Care Education/Training Program | DX: M25.552 Pain in left hip (principal); M47.818 Spondylosis without myelopathy or radiculopathy, sacral and sacrococcygeal region | CPT/HCPCS: 72170 ==

== ENCOUNTER 2023-03-07 09:26 | Outpatient (CLI) | payer OTHER | END 2023-03-07 09:27 | disposition home or self-care (01) | LOC: BICRAD 09:26 | PROVIDERS: ATTEND Student in an Organized Health Care Education/Training Program | DX: M62.830 Muscle spasm of back (principal); G93.31 Postviral fatigue syndrome; M47.816 Spondylosis without myelopathy or radiculopathy, lumbar region; M47.817 Spondylosis without myelopathy or radiculopathy, lumbosacral region; M25.78 Osteophyte, vertebrae | CPT/HCPCS: 71046; 72120 ==

== ENCOUNTER 2024-05-17 09:16 | Outpatient (CLI) | payer OTHER, MEDICAID | END 2024-05-17 09:17 | disposition home or self-care (01) | LOC: BICULT 09:16 | PROVIDERS: ATTEND Internal Medicine Nephrology | DX: I12.9 Hypertensive chronic kidney disease with stage 1 through stage 4 chronic kidney disease, or unspecified chronic kidney disease (principal); N18.9 Chronic kidney disease, unspecified | CPT/HCPCS: 76770; 93975 ==

== ENCOUNTER 2025-02-21 08:19 | Outpatient (CLI) | payer OTHER, MEDICAID | END 2025-02-21 08:20 | disposition home or self-care (01) | LOC: BICMAMMO 08:19 | PROVIDERS: ATTEND Internal Medicine Hospice and Palliative Medicine | DX: Z12.31 Encounter for screening mammogram for malignant neoplasm of breast (principal); N95.1 Menopausal and female climacteric states; N95.8 Other specified menopausal and perimenopausal disorders; M85.851 Other specified disorders of bone density and structure, right thigh; M85.852 Other specified disorders of bone density and structure, left thigh | CPT/HCPCS: 77063; 77067; 77080 ==